=== PATIENT | female | born 1975 | race American Indian/Alaskan Native ===

== ENCOUNTER 2018-02-07 20:14 | Emergency (ER) | payer MEDICAID ==
[2018-02-07 20:26] VITALS: BP 136/84; PULSE 82; RESP 18; TEMP 98.6; O2SAT 99; BMI 26.6
--- NOTE | 2018-02-07 20:36 | ED PDOC ---
Arrival/HPI - General Chief Complaint: ENT Problem Time Seen by Provider: 02/07/18 20:20 Historian: Patient - History of Present Illness Time/Duration: Other (10 days) Symptom Onset: Gradual Symptom Course: Worsening Quality: Other (Itching) Severity Level: Mild Activities at Onset: Rest Associated Symptoms (Text): 02/07/18 20:33 Patient complains of approximately a 10 day history of right much much greater than left periorbital swelling edema and itching. There is no eye involvement. No trauma. No travel or exposure. No visual disturbance. There is no other rash present. No fever or chills. No injury or trauma. Past Medical History - Infectious Disease Hx of Infectious Diseases: None - Reproductive Menopause: No - Cardiac Hx Cardiac Disorders: No - Pulmonary Hx Respiratory Disorders: No - Neurological Hx Neurological Disorder: No - HEENT Hx HEENT Disorder: No - Renal Hx Renal Disorder: No - Endocrine/Metabolic Hx Endocrine Disorders: Yes Hx Diabetes Mellitus Type 2: Yes - Hematological/Oncological Hx Blood Disorders: No - Integumentary Hx Dermatological Disorder: No - Musculoskeletal/Rheumatological Hx Musculoskeletal Disorders: No Hx Falls: No - Gastrointestinal Hx Gastrointestinal Disorders: No - Genitourinary/Gynecological Hx Genitourinary Disorders: No - Psychiatric Hx Psychophysiologic Disorder: No Hx Substance Use: No - Surgical History Other/Comment: pancreatic surgery - Anesthesia Hx Anesthesia: Yes - Suicidal Assessment Feels Threatened In Home Enviroment: No Family/Social History - Physician Review Nursing Documentation Reviewed: Yes Family/Social History: Unknown Family HX Smoking Status: Never Smoked Hx Alcohol Use: No Hx Substance Use: No Hx Substance Use Treatment: No Allergies/Home Meds Allergies/Adverse Reactions: Allergies No Known Allergies Allergy (Verified 12/19/15 21:50) Home Medications: Home Meds Medication Instructions Recorded Confirmed Ondansetron [Zofran] 4 mg PO Q8H PRN 07/22/16 07/22/16 Oxycodone HCl/Acetaminophen 1 tab PO Q6 PRN 07/22/16 07/22/16 [Percocet 5-325 mg Tablet] Review of Systems - Physician Review All systems were reviewed & negative as marked: Yes Physical Exam Vital Signs Temp Pulse Resp BP Pulse Ox 02/07/18 20:23 98.6 F 82 18 136/84 99 Temperature: Afebrile Blood Pressure: Normal Pulse: Regular Respiratory Rate: Normal Appearance: Positive for: Well-Appearing, Non-Toxic, Uncomfortable Pain Distress: None Mental Status: Positive for: Alert and Oriented X 3 Finger Stick Blood Glucose: 345 - Systems Exam Head: Present: Atraumatic, Normocephalic Pupils: Present: PERRL Extroacular Muscles: Present: EOMI Conjunctiva: Present: Normal, Other (Fluorescein staining is negative bilaterally. Right much greater than left periorbital edema with minimal erythema and no tenderness and itching) Ears: Present: NORMAL TM, Normal Canal. No: Erythema Medical Decision Making ED Course and Treatment: 02/07/18 20:36 This appears to be an allergic reaction, does not appear to be orbital or periorbital cellulitis. There is no warmth. No fever. Patient does not appear ill. Discussed with the patient that she will need to take Benadryl over-the- counter for the itching. She will be given a prescription for prednisone. She is aware that she may need to increase her insulin dosage while on the prednisone. She does use a sliding scale on a daily basis. Disposition/Present on Arrival - Present on Arrival Any Indicators Present on Arrival: No History of DVT/PE: No History of Uncontrolled Diabetes: Yes Urinary Catheter: No History of Decub. Ulcer: No History Surgical Site Infection Following: None - Disposition Have Diagnosis and Disposition been Completed?: Yes Diagnosis: Allergic reaction Disposition: HOME/ ROUTINE Disposition Time: 20:46 Patient Plan: Discharge Condition: GOOD Discharge Instructions (ExitCare): Skin Rash, Allergy Skin Testing Additional Instructions: Benadryl [id number] as directed on bottle as needed. Must use her sliding scale for insulin dosage. Follow-up with PMD. Follow-up in the ER as needed. Prescriptions: Prednisone [Deltasone] 20 mg PO DAILY #5 tablet Forms: [employer] (Kazakh)
== END 2018-02-07 21:00 | disposition home or self-care (01) ==
LOC: ED 20:14
DX: T78.40XA Allergy, unspecified, initial encounter (principal); X58.XXXA Exposure to other specified factors, initial encounter; E11.9 Type 2 diabetes mellitus without complications

== ENCOUNTER 2018-09-30 23:52 | Inpatient (IN) | payer MEDICAID ==
[2018-10-01 00:08] VITALS: BMI 25.0
--- NOTE | 2018-10-01 00:11 | ED PDOC ---
Arrival/HPI - General Time Seen by Provider: 09/30/18 23:58 Historian: Patient - History of Present Illness Narrative History of Present Illness (Text): 10/01/18 00:08 43 year old female, whose past medical history includes type 2 diabetes, presents to the emergency department with lower leg edema.Present for a while states the swelling has worsened.Occasional orthopnea. Patient denies any leg pain, chest pain, fever, chills, urinary complaints. Time/Duration: Prior to Arrival Past Medical History - Provider Review Nursing Documentation Reviewed: Yes - Infectious Disease Hx of Infectious Diseases: None - Cardiac Hx Cardiac Disorders: No - Pulmonary Hx Respiratory Disorders: No - Neurological Hx Neurological Disorder: No - HEENT Hx HEENT Disorder: No - Renal Hx Renal Disorder: No - Endocrine/Metabolic Hx Endocrine Disorders: Yes Hx Diabetes Mellitus Type 2: Yes - Hematological/Oncological Hx Blood Disorders: No - Integumentary Hx Dermatological Disorder: No - Musculoskeletal/Rheumatological Hx Musculoskeletal Disorders: No Hx Falls: No - Gastrointestinal Hx Gastrointestinal Disorders: No - Genitourinary/Gynecological Hx Genitourinary Disorders: No - Psychiatric Hx Psychophysiologic Disorder: No Hx Substance Use: No - Surgical History Other/Comment: pancreatic surgery - Anesthesia Hx Anesthesia: Yes - Suicidal Assessment Feels Threatened In Home Enviroment: No Family/Social History - Physician Review Nursing Documentation Reviewed: Yes Family/Social History: No Known Family HX Smoking Status: Never Smoked Hx Alcohol Use: No Hx Substance Use: No Hx Substance Use Treatment: No Allergies/Home Meds Allergies/Adverse Reactions: Allergies No Known Allergies Allergy (Verified 12/19/15 21:50) Home Medications: Home Meds Medication Instructions Recorded Confirmed Ondansetron [Zofran] 4 mg PO Q8H PRN 07/22/16 07/22/16 Oxycodone HCl/Acetaminophen 1 tab PO Q6 PRN 07/22/16 07/22/16 [Percocet 5-325 mg Tablet] Review of Systems - Physician Review All systems were reviewed & negative as marked: Yes - Review of Systems Constitutional: absent: Fevers, Night Sweats Respiratory: absent: SOB Cardiovascular: absent: Chest Pain Genitourinary Female: Normal Musculoskeletal: absent: Other (no leg pain) Physical Exam Vital Signs Reviewed: Yes Vital Signs Temp Pulse Resp BP Pulse Ox 10/01/18 00:04 97.6 F 93 H 18 184/95 H 100 Temperature: Afebrile Blood Pressure: Hypertensive Pulse: Regular Respiratory Rate: Normal Appearance: Positive for: Well-Appearing, Non-Toxic, Comfortable Pain Distress: None Mental Status: Positive for: Alert and Oriented X 3 - Systems Exam Head: Present: Atraumatic, Normocephalic Pupils: Present: PERRL Extroacular Muscles: Present: EOMI Conjunctiva: Present: Normal Mouth: Present: Moist Mucous Membranes Neck: Present: Normal Range of Motion Respiratory/Chest: Present: Clear to Auscultation, Good Air Exchange. No: Respiratory Distress, Accessory Muscle Use Cardiovascular: Present: Regular Rate and Rhythm, Normal S1, S2. No: Murmurs Abdomen: No: Tenderness, Distention, Peritoneal Signs Back: Present: Normal Inspection Upper Extremity: Present: Normal Inspection. No: Cyanosis, Edema Lower Extremity: No: Edema (1+ pitting edema), CALF TENDERNESS, Hazel's Sign Neurological: Present: GCS=15, CN II-XII Intact, Speech Normal, Motor Func Grossly Intact, Normal Sensory Function Skin: Present: Warm, Dry, Normal Color. No: Rashes Psychiatric: Present: Alert, Oriented x 3, Normal Insight, Normal Concentration Medical Decision Making ED Course and Treatment: 10/01/18 00:14 Impression: 43 year old female presents with chronic lower leg edema Plan: -- Chest X-ray -- US bilateral legs -- EKG -- Labs -- Urinalysis -- Reassess and disposition Prior Visits: Notes and results from previous visits were reviewed. Progress Notes: 10/01/18 01:54 Chest X-ray reviewed, shows: Increased pulmonary vascular markings. 10/01/18 01:[address] Lafleur who agrees to accept patient under hospitalist service to telemetry observation. - RAD Interpretation Radiology Orders: 10/01/18 00:04 CHEST PORTABLE [RAD] Stat DUPLEX LOWER EXTRM VEIN BILAT [US] Stat - EKG Interpretation EKG Interpretation (Text): 10/01/18 00:36 Normal sinus rhythm @ 82 bpm Normal EKG - Scribe Statement The provider has reviewed the documentation as recorded by the Lorenzaibtrent Lassiter Provider Scribe Attestation: All medical record entries made by the Scribe were at my direction and personally dictated by me. I have reviewed the chart and agree that the record accurately reflects my personal performance of the history, physical exam, medical decision making, and the department course for this patient. I have also personally directed, reviewed, and agree with the discharge instructions and disposition. Disposition/Present on Arrival - Present on Arrival Any Indicators Present on Arrival: No History of DVT/PE: No History of Uncontrolled Diabetes: Yes Urinary Catheter: No History of Decub. Ulcer: No History Surgical Site Infection Following: None - Disposition Have Diagnosis and Disposition been Completed?: Yes Diagnosis: Leg edema, CHF (congestive heart failure), UTI (urinary tract infection) Disposition: HOSPITALIZED Disposition Time: 01:50 Patient Plan: Observation Patient Problems: Current Active Problems Problem Status Onset CHF (congestive heart failure) Acute Leg edema Acute UTI (urinary tract infection) Acute Condition: STABLE
[2018-10-01 00:37] LABS: HEMOGLOBIN 8.9 g/dL (12.0-16.0); MEAN CELL VOLUME 85.2 fl (80.0-105.0); MEAN CORPUSCULAR HEMOGLOBIN 26.8 pg (25.0-35.0); MEAN CORPUSCULAR HGB CONC 31.4 g/dl (31.0-37.0); MEAN PLATELET VOLUME 10.1 fl (7.0-11.0); RBC 3.32 10^6/uL (3.5-6.1); RED CELL DISTRIBUTION WIDTH 16.6 % (11.5-14.5); WHITE BLOOD COUNT 9.9 10^3/uL (4.5-11.0)
[2018-10-01 00:38] LABS: URINE BILIRUBIN NEGATIVE (NEGATIVE); URINE BLOOD SMALL (NEGATIVE); URINE GLUCOSE (UA) >=1000 mg/dL (NEGATIVE); URINE LEUKOCYTE ESTERASE TRACE Leu/uL (NEGATIVE); URINE PROTEIN 100 mg/dL (<30 mg/dL); URINE UROBILINOGEN 0.2 E.U./dL (<1 E.U./dL)
[2018-10-01 00:45] LABS: URINE APPEARANCE SL CLOUDY (CLEAR); URINE COLOR YELLOW (YELLOW)
[2018-10-01 00:50] LABS: ALBUMIN 3.4 g/dL (3.0-4.8); ALT/SGPT 27 U/L (7-56); AST/SGOT 40 U/L (14-36); BLOOD UREA NITROGEN 25 mg/dL (7-21); CALCIUM 8.4 mg/dL (8.4-10.5); GFR NON-AFRICAN AMERICAN > 60
[2018-10-01 00:56] LABS: URINE BACTERIA MANY (NEG); URINE RBC 0 - 2 /hpf (0-2)
[2018-10-01 00:57] LABS: B-TYPE NATRIURETIC PEPTIDE 700 pg/mL (0-450)
[2018-10-01 01:33] LABS: TROPONIN I < 0.01 ng/mL
[2018-10-01 01:45] LABS: CK-MB 2.6 ng/mL (0.0-3.6)
--- NOTE | 2018-10-01 03:56 | CP.PCM.HP ---
<Dain Emerson - Last Filed: 10/01/18 04:18> History of Present Illness - History of Present Illness History of Present Illness: Dain Emerson PGY1 History and Physical for Dr Lafleur Pt is a 43 yo female with a PMH of DM, hypotension, UTI, and pancreatectomy who presents to the ED complaining of BL LE edema which started about a week ago. Pt states her right leg has also been hurting during this time but she denies any traumatic event. Pt states she has had trouble laying flat to sleep and will frequently wake up gasping for air. She states she has only been sleeping 1hr/night for the past 10 days. Pt states she has experienced dry mouth during this time, she frequently drinks water but cannot seem to quench her thirst. Pt states she feels cold all the time and is wrapped in a blanket during the history and physical. Pt states she has had a cough for the past 6 months. Pt states she has lost 15 lbs in the last 6 months. Pt states she has been experiencing urinary symptoms such as malodor, dysuria, and bubbles in her urine. A 12 point ROS was obtained and added to the HPI where appropriate. PMH: DM, hypotension, UTI, and "kidney problems" PSH: pancreatectomy 2016, cataract surgery 2008 FH: Mother 60 DM. Father 65 DM SH: Denies tobacco, alcohol, illicit drugs Home Meds: victosa, humalog, Lantus, metformin PMD: Dr Ornelas Present on Admission - Present on Admission Any Indicators Present on Admission: No Review of Systems - Review of Systems Review of Systems: a 12 point ROS was obtained and added to the HPI Past Patient History - Infectious Disease Hx of Infectious Diseases: None - Past Social History Smoking Status: Never Smoked - CARDIAC Hx Cardiac Disorders: No - PULMONARY Hx Respiratory Disorders: No - NEUROLOGICAL Hx Neurological Disorder: No - HEENT Hx HEENT Problems: No - RENAL Hx Chronic Kidney Disease: No - ENDOCRINE/METABOLIC Hx Endocrine Disorders: Yes Hx Diabetes Mellitus Type 2: Yes - HEMATOLOGICAL/ONCOLOGICAL Hx Blood Disorders: No - INTEGUMENTARY Hx Dermatological Problems: No - MUSCULOSKELETAL/RHEUMATOLOGICAL Hx Musculoskeletal Disorders: No Hx Falls: No - GASTROINTESTINAL Hx Gastrointestinal Disorders: No - GENITOURINARY/GYNECOLOGICAL Hx Genitourinary Disorders: No - PSYCHIATRIC Hx Psychophysiologic Disorder: No Hx Substance Use: No - SURGICAL HISTORY Other/Comment: pancreatic surgery - ANESTHESIA Hx Anesthesia: Yes Meds Allergies/Adverse Reactions: Allergies Allergy/AdvReac Type Severity Reaction Status Date / Time No Known Allergies Allergy Verified 12/19/15 21:50 Physical Exam - Constitutional Appears: Non-toxic, No Acute Distress - Head Exam Head Exam: ATRAUMATIC, NORMAL INSPECTION, NORMOCEPHALIC - Eye Exam Eye Exam: EOMI. absent: Scleral icterus - ENT Exam ENT Exam: Mucous Membranes Moist - Neck Exam Neck exam: Negative for: Full Rom - Respiratory Exam Respiratory Exam: Clear to Auscultation Bilateral, NORMAL BREATHING PATTERN. absent: Accessory Muscle Use, Wheezes, Respiratory Distress - Cardiovascular Exam Cardiovascular Exam: RRR, +S1, +S2. absent: Diastolic murmur, Systolic Murmur - GI/Abdominal Exam GI & Abdominal Exam: Normal Bowel Sounds, Soft - Extremities Exam Extremities exam: Positive for: pedal edema, pedal pulses present. Negative for: full ROM Additional comments: pt reports pain with flexion of her right hip - Neurological Exam Neurological exam: Alert, CN II-XII Intact, Oriented x3 - Psychiatric Exam Psychiatric exam: Normal Affect, Normal Mood - Skin Skin Exam: Dry, Intact, Warm Results - Vital Signs Recent Vital Signs: Last Vital Signs Temp 97.8 F 10/01/18 03:01 Pulse 82 10/01/18 03:01 Resp 17 10/01/18 03:01 BP 157/94 H 10/01/18 03:01 Pulse Ox 100 10/01/18 03:01 - Labs Result Diagrams: 10/01/18 00:22 10/01/18 00:22 Labs: Laboratory Results - last 24 hr 10/01/18 10/01/18 10/01/18 00:22 00:22 00:22 WBC 9.9 RBC 3.32 L Hgb 8.9 L Hct 28.3 L MCV 85.2 MCH 26.8 MCHC 31.4 RDW 16.6 H Plt Count 371 MPV 10.1 Sodium 139 Potassium 4.0 Chloride 109 H Carbon Dioxide 27 Anion Gap 7 L BUN 25 H Creatinine 0.8 Est GFR ( Amer) > 60 Est GFR (Non-Af Amer) > 60 Random Glucose 175 H Calcium 8.4 Total Bilirubin 0.2 AST 40 H ALT 27 Alkaline Phosphatase 51 Lactate Dehydrogenase Total Creatine Kinase CK-MB (CK-2) CK-MB (CK-2) % Troponin I NT-Pro-B Natriuret Pep 700 H Total Protein 6.6 Albumin 3.4 Globulin 3.2 Albumin/Globulin Ratio 1.0 L Urine Color Yellow Urine Appearance Sl cloudy Urine pH 6.0 Ur Specific [place] 1.025 Urine Protein 100 H Urine Glucose (UA) >=1000 Urine Ketones Negative Urine Blood Small H Urine Nitrate Positive H Urine Bilirubin Negative Urine Urobilinogen 0.2 Ur Leukocyte Esterase Trace H Urine RBC 0 - 2 Urine WBC 5 - 10 Ur Epithelial Cells 1 - 3 Urine Bacteria Many 10/01/18 01:05 WBC RBC Hgb Hct MCV MCH MCHC RDW Plt Count MPV Sodium Potassium Chloride Carbon Dioxide Anion Gap BUN Creatinine Est GFR ( Amer) Est GFR (Non-Af Amer) Random Glucose Calcium Total Bilirubin AST ALT Alkaline Phosphatase Lactate Dehydrogenase 744 H Total Creatine Kinase 749 H CK-MB (CK-2) 2.6 CK-MB (CK-2) % Cancelled Troponin I < 0.01 NT-Pro-B Natriuret Pep Total Protein Albumin Globulin Albumin/Globulin Ratio Urine Color Urine Appearance Urine pH Ur Specific [place] Urine Protein Urine Glucose (UA) Urine Ketones Urine Blood Urine Nitrate Urine Bilirubin Urine Urobilinogen Ur Leukocyte Esterase Urine RBC Urine WBC Ur Epithelial Cells Urine Bacteria Assessment & Plan - Assessment and Plan (Free Text) Assessment: Pt is a 43 yo female with a PMH of DM, hypotension, UTI, and pancreatectomy who presents to the ED complaining of BL LE edema which started about a week ago. Plan: SOB, Pedal Edema, PND - rule out CHF - follow up ECHO - given IV lasix in ED - will start PO lasix 40 daily tomorrow Leg Pain - motrin Anemia - FOBT - iron panel - B12, Folate HTN Urgency - start lisinopril 10mg daily - TSH, T3, T4 follow up UTI - urine cultures - levaquin DM - lisinopril - ISS high Hx of HLD - lipid panel in AM Ppx - SCD - protonix Pt seen, examined, assessment and plan discussed with Dr Miquel Emerson PGY1 Internal Medicine Resident - Date & Time Date: 10/01/18 Time: 04:17 <Irvin Lafleur - Last Filed: 10/01/18 07:18> Results - Vital Signs Recent Vital Signs: Last Vital Signs Temp 97.8 F 10/01/18 03:01 Pulse 79 10/01/18 06:51 Resp 18 10/01/18 06:51 BP 158/93 H 10/01/18 06:51 Pulse Ox 100 10/01/18 06:51 - Labs Result Diagrams: 10/01/18 00:22 10/01/18 00:22 Labs: Laboratory Results - last 24 hr 10/01/18 10/01/18 10/01/18 00:22 00:22 00:22 WBC 9.9 RBC 3.32 L Hgb 8.9 L Hct 28.3 L MCV 85.2 MCH 26.8 MCHC 31.4 RDW 16.6 H Plt Count 371 MPV 10.1 Sodium 139 Potassium 4.0 Chloride 109 H Carbon Dioxide 27 Anion Gap 7 L BUN 25 H Creatinine 0.8 Est GFR ( Amer) > 60 Est GFR (Non-Af Amer) > 60 Random Glucose 175 H Calcium 8.4 Total Bilirubin 0.2 AST 40 H ALT 27 Alkaline Phosphatase 51 Lactate Dehydrogenase Total Creatine Kinase CK-MB (CK-2) CK-MB (CK-2) % Troponin I NT-Pro-B Natriuret Pep 700 H Total Protein 6.6 Albumin 3.4 Globulin 3.2 Albumin/Globulin Ratio 1.0 L Urine Color Yellow Urine Appearance Sl cloudy Urine pH 6.0 Ur Specific [place] 1.025 Urine Protein 100 H Urine Glucose (UA) >=1000 Urine Ketones Negative Urine Blood Small H Urine Nitrate Positive H Urine Bilirubin Negative Urine Urobilinogen 0.2 Ur Leukocyte Esterase Trace H Urine RBC 0 - 2 Urine WBC 5 - 10 Ur Epithelial Cells 1 - 3 Urine Bacteria Many 10/01/18 01:05 WBC RBC Hgb Hct MCV MCH MCHC RDW Plt Count MPV Sodium Potassium Chloride Carbon Dioxide Anion Gap BUN Creatinine Est GFR ( Amer) Est GFR (Non-Af Amer) Random Glucose Calcium Total Bilirubin AST ALT Alkaline Phosphatase Lactate Dehydrogenase 744 H Total Creatine Kinase 749 H CK-MB (CK-2) 2.6 CK-MB (CK-2) % Cancelled Troponin I < 0.01 NT-Pro-B Natriuret Pep Total Protein Albumin Globulin Albumin/Globulin Ratio Urine Color Urine Appearance Urine pH Ur Specific [place] Urine Protein Urine Glucose (UA) Urine Ketones Urine Blood Urine Nitrate Urine Bilirubin Urine Urobilinogen Ur Leukocyte Esterase Urine RBC Urine WBC Ur Epithelial Cells Urine Bacteria Attending/Attestation - Attestation I have personally seen and examined this patient.: Yes I have fully participated in the care of the patient.: Yes I have reviewed all pertinent clinical information: Yes Notes (Text): 43 y/o F with PMH of DM, hypotension, UTI, and pancreatectomy presented with symptoms of worsening orthopnea and B/L LE swelling that has been ongoing for th e past 1wk. Denies any chest pain even upon exertion. No recent leg trauma, or long distance travel or prolonged immobility. P/E + bibasilar crackles, + B/L non-pitting LE edema. CXR: pulmonary congestion, as read by me BNP in 700's ? CHF - get 2D echo - start pt on lasix 40 daily - monitor I/Os HTN - start pt on Lisinopril DM - RISS UTI - send Ur cx - start pt on levaquin Anemia - elevated LDH - send Iron panel, Folate and B12 - send FOBT - Monitor H/H - Send Thyroid panel 10/01/18 07:09
[2018-10-01] MEDS: Pantoprazole 40 mg EC Tab PO SCH (06:50)
[2018-10-01 07:09] LABS: IRON 43 ug/dL (45-180)
[2018-10-01 07:10] LABS: ALBUMIN 3.1 g/dL (3.0-4.8); ALT/SGPT 27 U/L (7-56); AST/SGOT 37 U/L (14-36); BLOOD UREA NITROGEN 22 mg/dL (7-21); CALCIUM 8.6 mg/dL (8.4-10.5); GFR NON-AFRICAN AMERICAN > 60; HDL CHOLESTEROL 88 mg/dL (29-60)
[2018-10-01 07:19] LABS: % IRON SATURATION 13 % (20-55); TOTAL IRON BINDING CAPACITY 325 ug/dL (265-497)
[2018-10-01 07:20] LABS: LDL CHOLESTEROL 95 mg/dL (0-129)
[2018-10-01 07:29] LABS: T4 6.1 ug/dL (5.5-11.0)
[2018-10-01 07:36] LABS: BASO # 0.04 K/mm3 (0.0-2.0); BASO % 0.4 % (0.0-3.0); EOS # 0.2 (0.0-0.7); EOS % 2.1 % (1.5-5.0); GRAN # 7.09 (1.4-6.5); GRAN % 65.1 % (50.0-68.0); LYMPH # 2.3 (1.2-3.4); LYMPH % 21.1 % (22.0-35.0); MEAN CELL VOLUME 85.3 fl (80.0-105.0); MEAN CORPUSCULAR HEMOGLOBIN 26.5 pg (25.0-35.0); MEAN CORPUSCULAR HGB CONC 31.1 g/dl (31.0-37.0); MEAN PLATELET VOLUME 10.5 fl (7.0-11.0); MONO # 1.2 (0.1-0.6); MONO % 11.3 % (1.0-6.0); RBC 3.39 10^6/uL (3.5-6.1); RED CELL DISTRIBUTION WIDTH 16.6 % (11.5-14.5); WHITE BLOOD COUNT 10.9 10^3/uL (4.5-11.0)
[2018-10-01] MEDS: Insulin Reg-HIGH-Coverage SC SCH ×4 (07:40→22:32)
[2018-10-01 07:43] LABS: T3 0.93 ng/mL (0.97-1.69)
--- NOTE | 2018-10-01 09:46 | CARD ---
APPROVED REPORT Date of service: 10/01/2018 EKG Measurement Heart [id number] <Conclusion> Normal sinus rhythm Normal ECG
[2018-10-01] MEDS ORDERED: levoFLOXacin 500 MG TAB PO SCH (10:00)
[2018-10-01] MEDS ORDERED: Dextrose 50% SYRINGE Inj (50 ml) ONE ×2 (10:01→12:48)
--- NOTE | 2018-10-01 12:05 | RAD ---
Date of service: 10/01/2018 HISTORY: Leg edema. COMPARISON: 07/21/2016. FINDINGS: LUNGS: No discrete infiltrates. Pulmonary vascular congestion a progressive finding. PLEURA: No significant pleural effusion identified, no pneumothorax apparent. CARDIOVASCULAR: No atherosclerotic calcification present OSSEOUS STRUCTURES: No significant abnormalities. VISUALIZED UPPER ABDOMEN: Normal. OTHER FINDINGS: None. IMPRESSION: Pulmonary vascular congestion represents a new finding compared to the prior study 07/21/2016.
--- NOTE | 2018-10-01 12:49 | US ---
HISTORY: Leg pain and swelling. Evaluate for DVT PHYSICIAN(S): Osiel Donnelly MD. TECHNIQUE: Duplex sonography and color-flow Doppler with graded compression were used to evaluate the deep venous systems of both lower extremities. FINDINGS: The visualized deep venous systems of both lower extremities are sonographically normal and compressible. Normal wave forms and augmentation are seen. There is no sonographic evidence for deep venous thrombosis in the visualized segments of both lower extremities. IMPRESSION: No sonographic evidence for deep venous thrombosis in the visualized segments of both lower extremities.
[2018-10-01 13:15] LABS: FERRITIN 6.4 ng/mL
[2018-10-01] MEDS ORDERED: Dextrose 50% SYRINGE Inj (50 ml) IV PRN (13:33)
[2018-10-01 13:45] LABS: FOLATE > 20.0 ng/mL
--- NOTE | 2018-10-01 23:34 | CON ---
DATE OF CONSULTATION: 10/01/2018 REASON FOR CONSULTATION: Congestive heart failure. 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 The patient presents because of lower extremity edema as well as shortness of breath. The patient denies any fever or chills. The patient is unaware of any prior cardiac history in the past. MEDICATIONS: Lasix 40 mg p.o. once a day, ibuprofen 600 mg every 8 hours p.r.n., Protonix 40 mg p.o. once a day, Rocephin 1 g intravenously daily, and Zestril 10 mg once a day. REVIEW OF SYSTEMS: No fever or chills. No dizziness or syncope. The patient was reported to be hypoglycemic in the emergency room. PHYSICAL EXAMINATION GENERAL: The patient is a middle-aged female who does not appear to be in any distress. VITAL SIGNS: Blood pressure 143/62, heart rate 81, temperature 97.8, respirations 19. HEENT: Normocephalic. CHEST: Clear. HEART: S1 and S2 regular. EXTREMITIES: 1+ pitting edema. LABORATORY DATA: SMA-7: Sodium 139, potassium of 4, chloride 107, CO2 of 29, glucose 188, BUN 22, creatinine 0.8. ProBNP 700. TSH level at 0.44 and T3 at 0.93; both are below normal. Hemoglobin and hematocrit 9 and 28.9. White count and platelet count are within normal limits. Venous Doppler of the lower extremities: No sonographic evidence of DVT. Chest x-ray revealed normal cardiac silhouette and mild CHF, right hilar infiltrate. EKG revealed normal sinus rhythm at rate of 82. ASSESSMENT: 1. Lower extremity edema; deep venous thrombosis was excluded based on ultrasound. 2. Mild congestive heart failure. 3. Rule out underlying pneumonia. RECOMMENDATIONS: Continue current Lasix 40 mg once a day and Zestril 10 mg once a day, IV Rocephin at 1 g daily. Obtain an echocardiogram. Wayne Burks MD [facility] # [phone]
[2018-10-02] MEDS: Pantoprazole 40 mg EC Tab PO SCH (05:07)
[2018-10-02 06:02] VITALS: O2SAT 98
[2018-10-02 07:59] LABS: BASO # 0.05 K/mm3 (0.0-2.0); BASO % 0.5 % (0.0-3.0); EOS # 0.2 (0.0-0.7); EOS % 1.5 % (1.5-5.0); GRAN # 8.02 (1.4-6.5); GRAN % 72.9 % (50.0-68.0); HEMOGLOBIN 8.9 g/dL (12.0-16.0); LYMPH # 1.8 (1.2-3.4); LYMPH % 16.5 % (22.0-35.0); MEAN CELL VOLUME 84.4 fl (80.0-105.0); MEAN CORPUSCULAR HEMOGLOBIN 26.6 pg (25.0-35.0); MEAN CORPUSCULAR HGB CONC 31.6 g/dl (31.0-37.0); MEAN PLATELET VOLUME 10.5 fl (7.0-11.0); MONO # 0.9 (0.1-0.6); MONO % 8.6 % (1.0-6.0); RBC 3.34 10^6/uL (3.5-6.1); RED CELL DISTRIBUTION WIDTH 16.2 % (11.5-14.5)
[2018-10-02 08:16] LABS: ALBUMIN 2.8 g/dL (3.0-4.8); ALT/SGPT 29 U/L (7-56); AST/SGOT 36 U/L (14-36); BLOOD UREA NITROGEN 19 mg/dL (7-21); CALCIUM 8.4 mg/dL (8.4-10.5); GFR NON-AFRICAN AMERICAN > 60
[2018-10-02] MEDS: Insulin Reg-HIGH-Coverage SC SCH ×3 (08:16→16:29)
[2018-10-02] MEDS ORDERED: cefTRIAXone 1 gm 1 GM/100 ML BAG IVPB SCH (10:00)
[2018-10-02 12:38] VITALS: BP 135/61; RESP 20; TEMP 98.2
[2018-10-02 16:04] LABS: BLOOD UREA NITROGEN 27 mg/dL (7-21); CALCIUM 8.5 mg/dL (8.4-10.5); GFR NON-AFRICAN AMERICAN 60
[2018-10-02 16:37] VITALS: PULSE 80
--- NOTE | 2018-10-02 18:55 | PN ---
DATE: 10/02/2018 SUBJECTIVE: The patient denies any shortness of breath or dizziness. Leg swelling improved. PHYSICAL EXAMINATION VITAL SIGNS: Blood pressure 135/61, heart rate 78, temperature 98.2, respirations 20. HEENT: Normocephalic. CHEST: Clear. HEART: S1 and S2 regular. EXTREMITIES: Trace leg edema. LABORATORY DATA: Hemoglobin and hematocrit 8.9 and 28.2, white count and platelet counts are within normal limits. Today's SMA-7 is within normal limits except for glucose of 155 and anion gap of 7. Venous Doppler of the lower extremities, no sonographic evidence of DVT. A preliminary echo report with a normal ejection fraction and mild pulmonary hypertension, mild mitral insufficiency, mild pulmonic insufficiency. ASSESSMENT: 1. Improved lower extremity edema, could be related to pulmonary hypertension. 2. Mild mitral insufficiency. 3. History of pancreatic benign tumor removal. RECOMMENDATIONS: The patient can be discharged from the cardiac point of view. Case will be discussed with Dr. Dumas. Wayne Burks MD
--- NOTE | 2018-10-02 20:28 | CP.PCM.DIS ---
<SigifredoRamana - Last Filed: 10/02/18 20:13> Provider - Provider Date of Admission: 10/01/18 01:50 Attending physician: Fredi Gonzalez MD Primary care physician: Jesus Hinton MD Time Spent in preparation of Discharge (in minutes): 35 Hospital Course - Lab Results Lab Results: Micro Results 10/01/18 07:00 Urine,Clean Catch Urine Culture - Preliminary Gram Negative Malcolm Most Recent Lab Values WBC 11.0 10^3/uL (4.5-11.0) 10/02/18 07:00 RBC 3.34 10^6/uL (3.5-6.1) L 10/02/18 07:00 Hgb 8.9 g/dL (12.0-16.0) L 10/02/18 07:00 Hct 28.2 % (36.0-48.0) L 10/02/18 07:00 MCV 84.4 fl (80.0-105.0) 10/02/18 07:00 MCH 26.6 pg (25.0-35.0) 10/02/18 07:00 MCHC 31.6 g/dl (31.0-37.0) 10/02/18 07:00 RDW 16.2 % (11.5-14.5) H 10/02/18 07:00 Plt Count 393 10^3/uL (120.0-450.0) 10/02/18 07:00 MPV 10.5 fl (7.0-11.0) 10/02/18 07:00 Gran % 72.9 % (50.0-68.0) H 10/02/18 07:00 Lymph % (Auto) 16.5 % (22.0-35.0) L 10/02/18 07:00 Boone % (Auto) 8.6 % (1.0-6.0) H 10/02/18 07:00 Eos % (Auto) 1.5 % (1.5-5.0) 10/02/18 07:00 Baso % (Auto) 0.5 % (0.0-3.0) 10/02/18 07:00 Gran # 8.02 (1.4-6.5) H 10/02/18 07:00 Lymph # (Auto) 1.8 (1.2-3.4) 10/02/18 07:00 Boone # (Auto) 0.9 (0.1-0.6) H 10/02/18 07:00 Eos # (Auto) 0.2 (0.0-0.7) 10/02/18 07:00 Baso # (Auto) 0.05 K/mm3 (0.0-2.0) 10/02/18 07:00 Sodium 132 mmol/L (132-148) 10/02/18 15:00 Potassium 5.3 mmol/L (3.6-5.0) H 10/02/18 15:00 Chloride 98 mmol/L (98-107) 10/02/18 15:00 Carbon Dioxide 28 mmol/L (21-33) 10/02/18 15:00 Anion Gap 10 (10-20) 10/02/18 15:00 BUN 27 mg/dL (7-21) H 10/02/18 15:00 Creatinine 1.0 mg/dl (0.7-1.2) 10/02/18 15:00 Est GFR ( Amer) > 60 10/02/18 15:00 Est GFR (Non-Af Amer) 60 10/02/18 15:00 POC Glucose (mg/dL) 167 mg/dL (65-110) H 10/01/18 21:24 Random Glucose 600 mg/dL (70-110) H* D 10/02/18 15:00 Hemoglobin A1c 7.7 % (4.2-6.5) H D 10/01/18 06:30 Calcium 8.5 mg/dL (8.4-10.5) 10/02/18 15:00 Iron 43 ug/dL (45-180) L 10/01/18 06:50 TIBC 325 ug/dL (265-497) 10/01/18 06:50 % Saturation 13 % (20-55) L 10/01/18 06:50 Ferritin 6.4 ng/mL 10/01/18 06:50 Total Bilirubin 0.3 mg/dL (0.2-1.3) 10/02/18 07:00 AST 36 U/L (14-36) 10/02/18 07:00 ALT 29 U/L (7-56) 10/02/18 07:00 Alkaline Phosphatase 47 U/L (38-126) 10/02/18 07:00 Lactate Dehydrogenase 744 U/L (333-699) H 10/01/18 01:05 Total Creatine Kinase 749 U/L (35-230) H 10/01/18 01:05 CK-MB (CK-2) 2.6 ng/mL (0.0-3.6) 10/01/18 01:05 CK-MB (CK-2) % Cancelled 10/01/18 01:05 Troponin I < 0.01 ng/mL 10/01/18 01:05 NT-Pro-B Natriuret Pep 700 pg/mL (0-450) H 10/01/18 00:22 Total Protein 5.7 g/dL (5.8-8.3) L 10/02/18 07:00 Albumin 2.8 g/dL (3.0-4.8) L 10/02/18 07:00 Globulin 2.9 gm/dL 10/02/18 07:00 Albumin/Globulin Ratio 1.0 (1.1-1.8) L 10/02/18 07:00 Triglycerides 82 mg/dL (35-160) 10/01/18 06:50 Cholesterol 196 mg/dL (130-200) 10/01/18 06:50 LDL Cholesterol Direct 95 mg/dL (0-129) 10/01/18 06:50 HDL Cholesterol 88 mg/dL (29-60) H 10/01/18 06:50 Vitamin B12 413 pg/mL (239-931) 10/01/18 06:50 Folate > 20.0 ng/mL 10/01/18 06:50 Thyroxine (T4) 6.1 ug/dL (5.5-11.0) 10/01/18 06:50 Total T3 0.93 ng/mL (0.97-1.69) L 10/01/18 06:50 TSH 3rd Generation 0.44 mIU/mL (0.46-4.68) L 10/01/18 06:50 Urine Color Yellow (YELLOW) 10/01/18 00:22 Urine Appearance Sl cloudy (CLEAR) 10/01/18 00:22 Urine pH 6.0 (4.7-8.0) 10/01/18 00:22 Ur Specific Binger 1.025 (1.005-1.035) 10/01/18 00:22 Urine Protein 100 mg/dL (<30 mg/dL) H 10/01/18:22 Urine Glucose (UA) >=1000 mg/dL (NEGATIVE) 10/01/18: Urine Ketones Negative mg/dL (NEGATIVE) 10/01/18: Urine Blood Small (NEGATIVE) H 10/01/18: Urine Nitrate Positive (NEGATIVE) H 10/01/18: Urine Bilirubin Negative (NEGATIVE) 10/01/18: Urine Urobilinogen 0.2 E.U./dL (<1 E.U./dL) 10/01/18: Ur Leukocyte Esterase Trace Christine/uL (NEGATIVE) H 10/01/18: Urine RBC 0 - 2 /hpf (0-2) 10/01/18: Urine WBC 5 - 10 /hpf (0-6) 10/01/18: Ur Epithelial Cells 1 - 3 /hpf (0-5) 10/01/18: Urine Bacteria Many (NEG) 10/01/18: - Hospital Course Hospital Course: Ramana Mei, PGY1 Discharge Summary for Dr. Gonzalez Patient is a 43 yo female with a PMH of DM, HTN, UTI, and pancreatectomy who presented to the ED complaining of B/L LE edema which started about a week ago. She states her right leg has also been hurting during this time but she denied any traumatic event. Patient states she had trouble laying flat to sleep and frequently woke up at night gasping for air. She states she has had a cough for the past 6 months as well. Patient was admitted for lower extremity swelling possibly 2/2 CHF. Medical team was consulted. Cardio was consulted. Patient was started on Lasix, given IVP in the ED and switched to PO on the floors. She was also resumed on her home medications. Patient also had a UA +UTI. She was started on antibiotics. Patient's vitals were stable and labs were within normal limits. Patient had a hypoglycemic event in which her blood glucose dropped to as low as 20 during her hospital course. Her sugars returned to normal. Patient admitted to taking home doses of her own insulin injection during hospital course, which was removed from patients room by nursing staff. Patient's blood glucose was noted to be >500. Patient and family was anxious to go home. Patient was examined after this incident and found to be asymptomatic and in no acute distress. Patient signed out AMA. She was explained the risks of signing out AMA (DKA, HHS, coma, permanent disability, , etc.) and was told to return to the nearest ED if her symptoms worsen. Discharge Plan - Discharge Medications Prescriptions: Furosemide [Lasix] 20 mg PO DAILY #7 tablet - Follow Up Plan Condition: GUARDED Disposition: AGAINST MEDICAL ADVICE Referrals: Jesus Hinton MD [Primary Care Provider] - Follow up with primary <Fredi Gonzalez - Last Filed: 10/03/18 08:20> Provider - Provider Date of Admission: 10/02/18 16:17 Attending physician: Fredi Gonzalez MD Primary care physician: Jesus Hinton MD Hospital Course - Lab Results Lab Results: Micro Results 10/01/18 07:00 Urine,Clean Catch Urine Culture - Preliminary Gram Negative Malcolm Most Recent Lab Values WBC 11.0 10^3/uL (4.5-11.0) 10/02/18 07:00 RBC 3.34 10^6/uL (3.5-6.1) L 10/02/18 07:00 Hgb 8.9 g/dL (12.0-16.0) L 10/02/18 07:00 Hct 28.2 % (36.0-48.0) L 10/02/18 07:00 MCV 84.4 fl (80.0-105.0) 10/02/18 07:00 MCH 26.6 pg (25.0-35.0) 10/02/18 07:00 MCHC 31.6 g/dl (31.0-37.0) 10/02/18 07:00 RDW 16.2 % (11.5-14.5) H 10/02/18 07:00 Plt Count 393 10^3/uL (120.0-450.0) 10/02/18 07:00 MPV 10.5 fl (7.0-11.0) 10/02/18 07:00 Gran % 72.9 % (50.0-68.0) H 10/02/18 07:00 Lymph % (Auto) 16.5 % (22.0-35.0) L 10/02/18 07:00 Boone % (Auto) 8.6 % (1.0-6.0) H 10/02/18 07:00 Eos % (Auto) 1.5 % (1.5-5.0) 10/02/18 07:00 Baso % (Auto) 0.5 % (0.0-3.0) 10/02/18 07:00 Gran # 8.02 (1.4-6.5) H 10/02/18 07:00 Lymph # (Auto) 1.8 (1.2-3.4) 10/02/18 07:00 Boone # (Auto) 0.9 (0.1-0.6) H 10/02/18 07:00 Eos # (Auto) 0.2 (0.0-0.7) 10/02/18 07:00 Baso # (Auto) 0.05 K/mm3 (0.0-2.0) 10/02/18 07:00 Sodium 132 mmol/L (132-148) 10/02/18 15:00 Potassium 5.3 mmol/L (3.6-5.0) H 10/02/18 15:00 Chloride 98 mmol/L (98-107) 10/02/18 15:00 Carbon Dioxide 28 mmol/L (21-33) 10/02/18 15:00 Anion Gap 10 (10-20) 10/02/18 15:00 BUN 27 mg/dL (7-21) H 10/02/18 15:00 Creatinine 1.0 mg/dl (0.7-1.2) 10/02/18 15:00 Est GFR ( Amer) > 60 10/02/18 15:00 Est GFR (Non-Af Amer) 60 10/02/18 15:00 POC Glucose (mg/dL) 167 mg/dL (65-110) H 10/01/18 21:24 Random Glucose 600 mg/dL (70-110) H* D 10/02/18 15:00 Hemoglobin A1c 7.7 % (4.2-6.5) H D 10/01/18 06:30 Calcium 8.5 mg/dL (8.4-10.5) 10/02/18 15:00 Iron 43 ug/dL (45-180) L 10/01/18 06:50 TIBC 325 ug/dL (265-497) 10/01/18 06:50 % Saturation 13 % (20-55) L 10/01/18 06:50 Ferritin 6.4 ng/mL 10/01/18 06:50 Total Bilirubin 0.3 mg/dL (0.2-1.3) 10/02/18 07:00 AST 36 U/L (14-36) 10/02/18 07:00 ALT 29 U/L (7-56) 10/02/18 07:00 Alkaline Phosphatase 47 U/L (38-126) 10/02/18 07:00 Lactate Dehydrogenase 744 U/L (333-699) H 10/01/18 01:05 Total Creatine Kinase 749 U/L (35-230) H 10/01/18 01:05 CK-MB (CK-2) 2.6 ng/mL (0.0-3.6) 10/01/18 01:05 CK-MB (CK-2) % Cancelled 10/01/18 01:05 Troponin I < 0.01 ng/mL 10/01/18 01:05 NT-Pro-B Natriuret Pep 700 pg/mL (0-450) H 10/01/18 00:22 Total Protein 5.7 g/dL (5.8-8.3) L 10/02/18 07:00 Albumin 2.8 g/dL (3.0-4.8) L 10/02/18 07:00 Globulin 2.9 gm/dL 10/02/18 07:00 Albumin/Globulin Ratio 1.0 (1.1-1.8) L 10/02/18 07:00 Triglycerides 82 mg/dL (35-160) 10/01/18 06:50 Cholesterol 196 mg/dL (130-200) 10/01/18 06:50 LDL Cholesterol Direct 95 mg/dL (0-129) 10/01/18 06:50 HDL Cholesterol 88 mg/dL (29-60) H 10/01/18 06:50 Vitamin B12 413 pg/mL (239-931) 10/01/18 06:50 Folate > 20.0 ng/mL 10/01/18 06:50 Thyroxine (T4) 6.1 ug/dL (5.5-11.0) 10/01/18 06:50 Total T3 0.93 ng/mL (0.97-1.69) L 10/01/18 06:50 TSH 3rd Generation 0.44 mIU/mL (0.46-4.68) L 10/01/18 06:50 Urine Color Yellow (YELLOW) 10/01/18 00:22 Urine Appearance Sl cloudy (CLEAR) 10/01/18 00:22 Urine pH 6.0 (4.7-8.0) 10/01/18 00:22 Ur Specific Binger 1.025 (1.005-1.035) 10/01/18 00:22 Urine Protein 100 mg/dL (<30 mg/dL) H 10/01/18 00:22 Urine Glucose (UA) >=1000 mg/dL (NEGATIVE) 10/01/18 00:22 Urine Ketones Negative mg/dL (NEGATIVE) 10/01/18 00:22 Urine Blood Small (NEGATIVE) H 10/01/18 00:22 Urine Nitrate Positive (NEGATIVE) H 10/01/18 00:22 Urine Bilirubin Negative (NEGATIVE) 10/01/18 00:22 Urine Urobilinogen 0.2 E.U./dL (<1 E.U./dL) 10/01/18 00:22 Ur Leukocyte Esterase Trace Christine/uL (NEGATIVE) H 10/01/18 00:22 Urine RBC 0 - 2 /hpf (0-2) 10/01/18 00:22 Urine WBC 5 - 10 /hpf (0-6) 10/01/18 00:22 Ur Epithelial Cells 1 - 3 /hpf (0-5) 10/01/18 00:22 Urine Bacteria Many (NEG) 10/01/18 00:22 Discharge Exam - Head Exam Head Exam: ATRAUMATIC, NORMAL INSPECTION - Eye Exam Eye Exam: EOMI - ENT Exam ENT Exam: Normal Exam - Neck Exam Neck exam: Full Rom - Respiratory Exam Respiratory Exam: Clear to PA & Lateral. absent: Rhonchi, Wheezes - Cardiovascular Exam Cardiovascular Exam: REGULAR RHYTHM, +S1, +S2 - GI/Abdominal Exam GI & Abdominal Exam: Normal Bowel Sounds, Soft. absent: Guarding, Organomegaly, Rebound, Tenderness - Extremities Exam Additional comments: LE edema - Neurological Exam Neurological exam: Alert, Oriented x3 - Psychiatric Exam Psychiatric exam: Normal Affect, Normal Mood Discharge Plan - Follow Up Plan Patient education suggested?: Yes Attending/Attestation - Attestation I have personally seen and examined this patient.: Yes I have fully participated in the care of the patient.: Yes I have reviewed all pertinent clinical information, including history, physical exam and plan: Yes Notes (Text): 10/02/18 43 year old female with past medical history of diabetes, hypertension, pancreatic lesion s/p removal and anemia who presented with complaint of bilateral LE edema and dyspnea on exertion. She was admitted for presumed CHF exacerbation and started on iv lasix. Prbnp was elevated and CXR showed moderate congestion. Echocardiogram showed diastolic dysfunction with preserved EF. She was also started on antibiotics for possible UTI. 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 She had uncontrolled diabetes with fluctuating sugars between hypo/hyperglycemia. Patient signed out against medical advice later in the afternoon. She was explained the risks of signing out against medical advice. Advised to follow up closely with pmd within 2-3 days. Monitor fingersticks at home and bring log book to pmd. Educated on signs of hypo/hyperglycemia. Return to ER if symptoms recur/worse. Fredi Gonzalez MD Hospitalist.
--- NOTE | 2018-10-02 21:28 | CARD ---
APPROVED REPORT Date of service: 10/02/2018 EXAM: Two-dimensional and M-mode echocardiogram with Doppler and color Doppler. INDICATION LE EDEMA, PND 2D DIMENSIONS IVSd1.2 (0.7-1.1cm)LVDd4.4 (3.9-5.9cm) PWd1.3 (0.7-1.1cm)LVDs2.8 (2.5-4.0cm) FS (%) 36.8 %LVEF (%)66.9 (>50%) M-Mode DIMENSIONS Left Atrium (MM)3.80 (2.5-4.0cm)Aortic Root3.50 (2.2-3.7cm) Aortic Cusp Exc.2.20 (1.5-2.0cm) Aortic Valve AoV Peak Ialjmbgu335.0cm/Maximo Peak GR.10mmHg Mitral Valve MV E Kwcfyssx63.8cm/sMV A Tugefukc11.5cm/sE/A ratio1.2 TDI Lateral E' Peak V9.65cm/sMedial E' Peak V8.58cm/sE/Lateral E'9.6 E/Medial E'10.8 Tricuspid Valve TR Peak Ypvejbll152pg/sRAP [id number] Peak Gr.31mmHg [id number] LEFT VENTRICLE The left ventricle is normal size. There is mild concentric left ventricular hypertrophy. The left ventricular function is normal.EF-65% There is normal LV segmental wall motion. Transmitral Doppler flow pattern is Grade III-reversible restrictive diastolic dysfunction. No left ventricle thrombus noted on this study. There is no ventricular septal defect visualized. There is no left ventricular aneurysm. There is no mass noted in the left ventricle. There is no mass noted in the left ventricle. RIGHT VENTRICLE The right ventricle is normal size. There is normal right ventricular wall thickness. The right ventricular systolic function is normal. ATRIA The left atrium is mildly dilated. The right atrium size is normal. The interatrial septum is intact with no evidence for an atrial septal defect. AORTIC VALVE The aortic valve is thickened but opens well. The aortic valve is mildly sclerotic. There is trace aortic regurgitation. There is no aortic valvular stenosis. There is no aortic valvular vegetation. MITRAL VALVE The mitral valve is thickened but opens well. Mitral regurgitation is mild. There is no mitral valve stenosis. There is no evidence of mitral valve prolapse. TRICUSPID VALVE The tricuspid valve leaflets are thickened or calcified, but open well. There is mild tricuspid regurgitation.RVSP-41 mm of Hg, There is no tricuspid valve stenosis. There is no tricuspid valve prolapse or vegetation. PULMONIC VALVE The pulmonic valve is mildly thickened. There is mild pulmonic valvular regurgitation. There is no pulmonic valvular stenosis. GREAT VESSELS The aortic root is normal in size. The ascending aorta is normal in size. The pulmonary artery is normal. The IVC is normal in size and collapses >50% with inspiration. PERICARDIAL EFFUSION There is no pleural effusion. There is no pericardial effusion. <Conclusion> The left ventricle is normal size. There is mild concentric left ventricular hypertrophy. The left ventricular function is normal.EF-65% There is trace aortic regurgitation. Mitral regurgitation is mild. There is mild tricuspid regurgitation.RVSP-41 mm of Hg, There is mild pulmonic valvular regurgitation. The IVC is normal in size and collapses >50% with inspiration. There is no pericardial effusion.
== END 2018-10-02 17:35 | disposition left against medical advice (07) | DRG 194 ==
LOC: ED 23:52 → ERH 10-01 01:50 → 2RSO 10-01 17:54 → OBSVTOIN 10-02 16:17
PROVIDERS: ADMIT Hospitalist; ATTEND Internal Medicine
DX: I11.0 Hypertensive heart disease with heart failure (principal); E10.649 Type 1 diabetes mellitus with hypoglycemia without coma; I50.33 Acute on chronic diastolic (congestive) heart failure; E10.65 Type 1 diabetes mellitus with hyperglycemia; D64.9 Anemia, unspecified; I34.0 Nonrheumatic mitral (valve) insufficiency; N39.0 Urinary tract infection, site not specified; Z90.410 Acquired total absence of pancreas

== ENCOUNTER 2018-10-23 18:49 | Observation (INO) | payer MEDICAID ==
[2018-10-23 18:56] VITALS: BMI 25.6
[2018-10-23 19:52] LABS: BASO # 0.04 K/mm3 (0.0-2.0); BASO % 0.4 % (0.0-3.0); EOS # 0.2 (0.0-0.7); GRAN # 6.27 (1.4-6.5); GRAN % 67.3 % (50.0-68.0); HEMOGLOBIN 8.8 g/dL (12.0-16.0); LYMPH # 2.1 (1.2-3.4); LYMPH % 22.4 % (22.0-35.0); MEAN CELL VOLUME 84.8 fl (80.0-105.0); MEAN CORPUSCULAR HEMOGLOBIN 26.8 pg (25.0-35.0); MEAN CORPUSCULAR HGB CONC 31.7 g/dl (31.0-37.0); MONO # 0.7 (0.1-0.6); MONO % 7.9 % (1.0-6.0); RBC 3.28 10^6/uL (3.5-6.1); RED CELL DISTRIBUTION WIDTH 15.9 % (11.5-14.5); WHITE BLOOD COUNT 9.3 10^3/uL (4.5-11.0)
[2018-10-23 19:56] LABS: INR 0.91; PARTIAL THROMBOPLASTIN TIME 32.5 Seconds (25.1-36.5); PROTHROMBIN TIME 10.4 SECONDS (9.4-12.5)
[2018-10-23 20:03] LABS: B-TYPE NATRIURETIC PEPTIDE 912 pg/mL (0-450); TROPONIN I < 0.01 ng/mL
[2018-10-23 20:49] LABS: ALB/GLOB RATIO 0.9 (1.1-1.8); ALT/SGPT 21 U/L (7-56); AST/SGOT 23 U/L (14-36); BLOOD UREA NITROGEN 28 mg/dL (7-21); CALCIUM 8.9 mg/dL (8.4-10.5); GFR NON-AFRICAN AMERICAN 60
[2018-10-23] MEDS ORDERED: Iohexol 350 MG/100 ML VIAL ONE (20:59)
[2018-10-23 21:17] LABS: FREE T4 1.15 ng/dL (0.78-2.19)
[2018-10-23 21:21] LABS: URINE BILIRUBIN NEGATIVE (NEGATIVE); URINE BLOOD TRACE-INTACT (NEGATIVE); URINE GLUCOSE (UA) >=1000 mg/dL (NEGATIVE); URINE LEUKOCYTE ESTERASE NEGATIVE Leu/uL (NEGATIVE); URINE PROTEIN 100 mg/dL (<30 mg/dL); URINE UROBILINOGEN 0.2 E.U./dL (<1 E.U./dL)
[2018-10-23 21:31] LABS: URINE APPEARANCE CLEAR (CLEAR); URINE COLOR STRAW (YELLOW)
[2018-10-23 21:37] LABS: URINE EPITHELIAL CELLS MANY /hpf (0-5); URINE WBC 15 - 20 /hpf (0-6)
--- NOTE | 2018-10-23 21:49 | ED PDOC ---
Arrival/HPI <FredWilton - Last Filed: 10/23/18 21:57> - General Historian: Patient - History of Present Illness Narrative History of Present Illness (Text): 10/23/18 21:45 43 y/o female with PMH of uncontrolled DM, HTN, Cardiomyopathy (impaired diastolic function with preserved EF), pancreatic mass (s/p resection 2015) presents to the ED c/o chest pain and palpitations x 2 days. Chest pain is intermittent and alternates between sharp and pressure. Palpitations decreased as heart beating "fast and hard". Associated SOB and dry cough worse when laying flat. Pt was seen here 10/01 and admitted for symptoms of CHF, including SOB and bilateral peripheral pedal edema. States she followed up with her PMD Dr. Jesus Hinton, who helped her schedule an appointment with cardiology for 11/02. Pt only take her insulin when she feels like her sugar is high. No insulin taken today. Denies fevers, chills, diaphoresis, dysonea on exertion, N/V, abdominal pain, headache, vision changes, dizziness, weakness, numbness, paresthesias, urinary symptoms, back pain, calf pain, leg swelling, or any other associated symptoms. <Gardenia Belle - Last Filed: 10/23/18 22:35> <Rj Peñaloza - Last Filed: 10/24/18 07:03> - General Chief Complaint: Chest Pain Time Seen by Provider: 10/23/18 19:00 Past Medical History - Infectious Disease Hx of Infectious Diseases: None - Cardiac Hx Cardiac Disorders: Yes Hx Congestive Heart Failure: Yes Hx Hypertension: Yes - Pulmonary Hx Respiratory Disorders: No - Neurological Hx Neurological Disorder: No - HEENT Hx HEENT Disorder: No - Renal Hx Renal Disorder: No - Endocrine/Metabolic Hx Endocrine Disorders: Yes Hx Diabetes Mellitus Type 1: Yes (Pancreatic Tumor removed 2015) - Hematological/Oncological Hx Blood Disorders: No - Integumentary Hx Dermatological Disorder: No - Musculoskeletal/Rheumatological Hx Falls: No - Gastrointestinal Hx Pancreatitis: Yes (Tumor removed 2015) - Genitourinary/Gynecological Hx Genitourinary Disorders: No - Psychiatric Hx Psychophysiologic Disorder: No Hx Substance Use: No - Surgical History Other/Comment: pancreatic surgery - Anesthesia Hx Anesthesia: Yes - Suicidal Assessment Feels Threatened In Home Enviroment: No <Gardenia Belle - Last Filed: 10/23/18 22:35> Family/Social History - Physician Review Nursing Documentation Reviewed: Yes Family/Social History: No Known Family HX Smoking Status: Never Smoked Hx Alcohol Use: No Hx Substance Use: No Hx Substance Use Treatment: No <Gardenia Belle - Last Filed: 10/23/18 22:35> Allergies/Home Meds <Wilton Ibarra - Last Filed: 10/23/18 21:57> <Gardenia Belle - Last Filed: 10/23/18 22:35> <Rj Peñaloza - Last Filed: 10/24/18 07:03> Allergies/Adverse Reactions: Allergies No Known Allergies Allergy (Verified 12/19/15 21:50) Home Medications: Home Meds Medication Instructions Recorded Confirmed Ondansetron [Zofran] 4 mg PO Q8H PRN 07/22/16 07/22/16 Oxycodone HCl/Acetaminophen 1 tab PO Q6 PRN 07/22/16 07/22/16 [Percocet 5-325 mg Tablet] Alogliptin 25 mg PO DAILY 10/01/18 10/01/18 Atorvastatin 20 mg PO HS 10/01/18 10/01/18 Basaglar Kwikpen U-100 50 units SQ HS 10/01/18 10/01/18 Drisdol 50,000 Intl Units Cap 1 cap PO QD7 10/01/18 10/01/18 Home 10/01/18 Jardiance 25 mg PO DAILY 10/01/18 10/01/18 Metformin HCl 1,000 mg PO BID 10/01/18 10/01/18 Novofine 32 10/01/18 Victoza 2-Thomas 6 mg SQ DAILY 10/01/18 10/01/18 Review of Systems - Physician Review All systems were reviewed & negative as marked: Yes - Review of Systems Constitutional: Fatigue. absent: Fevers Eyes: Normal. absent: Vision Changes ENT: Normal. absent: Sore Throat, Sinus Congestion Respiratory: SOB, Cough. absent: Sputum, Wheezing Cardiovascular: Chest Pain, Palpitations, Orthopnea. absent: Edema, Calf Pain, Syncope Gastrointestinal: Normal. absent: Abdominal Pain, Stool Changes, Nausea, Vomiting, Appetite Changes Genitourinary Female: Normal Musculoskeletal: Normal. absent: Arthralgias, Back Pain Skin: Normal. absent: Rash Neurological: Normal. absent: Headache, Dizziness Endocrine: Normal. absent: Diaphoresis Hemo/Lymphatic: Normal Psychiatric: Normal <BarbraGardenia - Last Filed: 10/23/18 22:35> Physical Exam Vital Signs Temp Pulse Resp BP Pulse Ox 10/23/18 19:03 98.0 F 81 16 171/91 H 99 <Wilton Ibarra - Last Filed: 10/23/18 21:57> Vital Signs Reviewed: Yes Vital Signs Temp Pulse Resp BP Pulse Ox 10/23/18 19:03 98.0 F 81 16 171/91 H 99 Temperature: Afebrile Blood Pressure: Hypertensive Pulse: Regular Respiratory Rate: Normal Appearance: Positive for: Well-Appearing, Non-Toxic, Comfortable Pain Distress: None Mental Status: Positive for: Alert and Oriented X 3 - Systems Exam Head: Present: Atraumatic, Normocephalic Pupils: Present: PERRL Extroacular Muscles: Present: EOMI Conjunctiva: Present: Normal Mouth: Present: Moist Mucous Membranes Nose (External): Present: Atraumatic Nose (Internal): Present: Normal Inspection Neck: Present: Normal Range of Motion Respiratory/Chest: Present: Clear to Auscultation, Good Air Exchange. No: Respiratory Distress, Accessory Muscle Use Cardiovascular: Present: Regular Rate and Rhythm, Normal S1, S2, Peripheal Pulses Present. No: Murmurs Abdomen: Present: Normal Bowel Sounds. No: Tenderness, Distention, Peritoneal Signs Back: Present: Normal Inspection. No: CVA Tenderness Upper Extremity: Present: Normal Inspection, Normal ROM, NORMAL PULSES, Neurovascularly Intact, Capillary Refill < 2s. No: Cyanosis, Edema Lower Extremity: Present: Normal Inspection, NORMAL PULSES, Normal ROM, Neurovascularly Intact, Capillary Refill < 2 s. No: Edema, CALF TENDERNESS, Tenderness, Swelling Neurological: Present: GCS=15, CN II-XII Intact, Speech Normal, Motor Func Grossly Intact, Normal Sensory Function Skin: Present: Warm, Dry, Normal Color. No: Rashes Lymphatic: No: Cervical Adenopathy Psychiatric: Present: Alert, Oriented x 3, Normal Insight, Normal Concentration, Normal Affect, Normal Mood <Gardenia Belle - Last Filed: 10/23/18 22:35> Vital Signs Temp Pulse Resp BP Pulse Ox 10/23/18 23:35 19 10/23/18 23:08 81 18 139/81 99 10/23/18 21:05 79 18 168/90 H 99 10/23/18 19:03 98.0 F 81 16 171/91 H 99 <Rj Peñaloza - Last Filed: 10/24/18 07:03> Medical Decision Making - Lab Interpretations Lab Results: 10/23/18 19:30 10/23/18 19:30 Lab Results 10/23/18 20:30: Urine Color Straw, Urine Appearance Clear, Urine pH 6.0, Ur Specific [place] 1.020, Urine Protein 100 H, Urine Glucose (UA) >=1000, Urine Ketones Negative, Urine Blood Trace-intact H, Urine Nitrate Negative, Urine Bilirubin Negative, Urine Urobilinogen 0.2, Ur Leukocyte Esterase Negative, Urine RBC 5 - 10, Urine WBC 15 - 20, Ur Epithelial Cells Many 10/23/18 19:30: Free T4 1.15, TSH 3rd Generation 0.65 10/23/18 19:30: PT 10.4, INR 0.91, APTT 32.5, D-Dimer, Quantitative 461 H 10/23/18 19:30: Sodium 140, Potassium 4.1, Chloride 110 H, Carbon Dioxide 26, Anion Gap 8 L, BUN 28 H, Creatinine 1.0, Est GFR ( Amer) > 60, Est GFR (Non-Af Amer) 60, Random Glucose 233 H, Calcium 8.9, Magnesium 2.2, Total Bilirubin 0.2, AST 23, ALT 21, Alkaline Phosphatase 58, Lactate Dehydrogenase 620, Total Creatine Kinase 104, Troponin I < 0.01, NT-Pro-B Natriuret Pep 912 H, Total Protein 6.1, Albumin 3.0, Globulin 3.2, Albumin/Globulin Ratio 0.9 L 10/23/18 19:30: WBC 9.3, RBC 3.28 L, Hgb 8.8 L, Hct 27.8 L, MCV 84.8, MCH 26.8, MCHC 31.7, RDW 15.9 H, Plt Count 326, MPV 10.0, Gran % 67.3, Lymph % (Auto) 22.4, Ida % (Auto) 7.9 H, Eos % (Auto) 2.0, Baso % (Auto) 0.4, Gran # 6.27, Lymph # (Auto) 2.1, Ida # (Auto) 0.7 H, Eos # (Auto) 0.2, Baso # (Auto) 0.04 - RAD Interpretation Radiology Orders: 10/23/18 19:11 CHEST TWO VIEWS (PA/LAT) [RAD] Stat 10/23/18 19:58 ANGIO CHEST PE PROTOCOL [CT] Stat - Medication Orders Current Medication Orders: Discontinued Medications Aspirin (Aspirin) 325 mg PO STAT STA Stop: 10/23/18 19:19 Last Admin: 10/23/18 20:27 Dose: 325 mg <Wilton Ibarra - Last Filed: 10/23/18 21:57> ED Course and Treatment: 1900 Initial Plan: * CBC, CMP * TSH, T3, T4 * Troponin, Dimer * BNP * EKG * CXR * ASA CBC: hgb 8.8, pt with history of anemia CMP: BUN 28, gap 8, glucose 233 TSH, T3, T4: wnl Troponin: <0.01 BNP: 912, increased from 700 last visit Dimer: 461 will get CTA. risk v. benefit discussed with patient, who verbalizes understanding and consents for test. CXR: no active disease as read by Dr. Ibarra EKG: rate 81; NSR; normal intervals; no STEMI 2155 CTA negative for pulmonary embolism. Retroperitoneal masses/adenopathy, recommend followup CT abd/pelvis 2220 --Spoke with Dr. Birch who accepts patient for admission to hospitalist service for observation with diagnoses of Chest pain r/o ACS, Anemia, Dyspnea, CHF, Hyperglycemia. Patient aware of plan for admission, agrees, and understands necessity for observation. Patient A&Ox3, resting comfortably in stretcher, with stable vitals at this time. - Lab Interpretations Lab Results: 10/23/18 19:30 10/23/18 19:30 Lab Results 10/23/18 20:30: Urine Color Straw, Urine Appearance Clear, Urine pH 6.0, Ur Specific [place] 1.020, Urine Protein 100 H, Urine Glucose (UA) >=1000, Urine Ketones Negative, Urine Blood Trace-intact H, Urine Nitrate Negative, Urine Bilirubin Negative, Urine Urobilinogen 0.2, Ur Leukocyte Esterase Negative, Urine RBC 5 - 10, Urine WBC 15 - 20, Ur Epithelial Cells Many 10/23/18 19:30: Free T4 1.15, TSH 3rd Generation 0.65 10/23/18 19:30: PT 10.4, INR 0.91, APTT 32.5, D-Dimer, Quantitative 461 H 10/23/18 19:30: Sodium 140, Potassium 4.1, Chloride 110 H, Carbon Dioxide 26, Anion Gap 8 L, BUN 28 H, Creatinine 1.0, Est GFR ( Amer) > 60, Est GFR (Non-Af Amer) 60, Random Glucose 233 H, Calcium 8.9, Magnesium 2.2, Total Bilirubin 0.2, AST 23, ALT 21, Alkaline Phosphatase 58, Lactate Dehydrogenase 620, Total Creatine Kinase 104, Troponin I < 0.01, NT-Pro-B Natriuret Pep 912 H, Total Protein 6.1, Albumin 3.0, Globulin 3.2, Albumin/Globulin Ratio 0.9 L 10/23/18 19:30: WBC 9.3, RBC 3.28 L, Hgb 8.8 L, Hct 27.8 L, MCV 84.8, MCH 26.8, MCHC 31.7, RDW 15.9 H, Plt Count 326, MPV 10.0, Gran % 67.3, Lymph % (Auto) 22.4, Ida % (Auto) 7.9 H, Eos % (Auto) 2.0, Baso % (Auto) 0.4, Gran # 6.27, Lymph # (Auto) 2.1, Ida # (Auto) 0.7 H, Eos # (Auto) 0.2, Baso # (Auto) 0.04 I have reviewed the lab results: Yes - RAD Interpretation Narrative RAD Interpretations (Text): 10/23/18 22:16 CXR: No active disease 10/23/18 22:48 CTA Chest with Intravenous Contrast for Pulmonary Embolism FINDINGS: PULMONARY ARTERIES Pulmonary embolism is not identified. No pleural effusions AORTA Thoracic aorta is normal course and caliber LUNGS The lungs appear clear. PLEURAL SPACES No pleural effusion seen. No pneumothorax evident. HEART Normal size heart LYMPH NODES Questionable multiple retroperitoneal masses/adenopathy, see series [address] of the abdomen and pelvis for further evaluation as clinically warranted. BONES No focal osseous abnormality or acute fracture. UPPER ABDOMEN Images of the upper abdomen are unremarkable. MISCELLANEOUS: Suboptimal contrast timing No infiltrates identified IMPRESSION: 1. Suboptimal contrast timing 2. Pulmonary embolism is not identified. No pleural effusions 3. No infiltrates identified 4. Thoracic aorta is normal course and caliber 5. Normal size heart 6. Questionable multiple retroperitoneal masses/adenopathy, see series [address] of the abdomen and pelvis for further evaluation as clinically warranted. 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 Ibarra) - EKG Interpretation EKG Interpretation (Text): 10/23/18 22:17 Rate 81; NSR; normal intervals; no STEMI or other signs of ischemia Interpreted by ED Physician: Yes (Dr. Peñaloza) Type: 12 lead EKG - Medication Orders Current Medication Orders: Discontinued Medications Aspirin (Aspirin) 325 mg PO STAT STA Stop: 10/23/18 19:19 Last Admin: 10/23/18 20:27 Dose: 325 mg <Gardenia Belle - Last Filed: 10/23/18 22:35> - Lab Interpretations Lab Results: 10/23/18 19:30 10/23/18 19:30 Lab Results 10/23/18 20:30: Urine Color Straw, Urine Appearance Clear, Urine pH 6.0, Ur Specific [place] 1.020, Urine Protein 100 H, Urine Glucose (UA) >=1000, Urine Ketones Negative, Urine Blood Trace-intact H, Urine Nitrate Negative, Urine Bilirubin Negative, Urine Urobilinogen 0.2, Ur Leukocyte Esterase Negative, Urine RBC 5 - 10, Urine WBC 15 - 20, Ur Epithelial Cells Many 10/23/18 19:30: Free T4 1.15, TSH 3rd Generation 0.65 10/23/18 19:30: PT 10.4, INR 0.91, APTT 32.5, D-Dimer, Quantitative 461 H 10/23/18 19:30: Sodium 140, Potassium 4.1, Chloride 110 H, Carbon Dioxide 26, Anion Gap 8 L, BUN 28 H, Creatinine 1.0, Est GFR ( Amer) > 60, Est GFR (Non-Af Amer) 60, Random Glucose 233 H, Calcium 8.9, Magnesium 2.2, Total Bilirubin 0.2, AST 23, ALT 21, Alkaline Phosphatase 58, Lactate Dehydrogenase 620, Total Creatine Kinase 104, Troponin I < 0.01, NT-Pro-B Natriuret Pep 912 H, Total Protein 6.1, Albumin 3.0, Globulin 3.2, Albumin/Globulin Ratio 0.9 L 10/23/18 19:30: WBC 9.3, RBC 3.28 L, Hgb 8.8 L, Hct 27.8 L, MCV 84.8, MCH 26.8, MCHC 31.7, RDW 15.9 H, Plt Count 326, MPV 10.0, Gran % 67.3, Lymph % (Auto) 22.4, Ida % (Auto) 7.9 H, Eos % (Auto) 2.0, Baso % (Auto) 0.4, Gran # 6.27, Lymph # (Auto) 2.1, Ida # (Auto) 0.7 H, Eos # (Auto) 0.2, Baso # (Auto) 0.04 - RAD Interpretation Radiology Orders: 10/23/18 19:11 CHEST TWO VIEWS (PA/LAT) [RAD] Stat 10/23/18 19:58 ANGIO CHEST PE PROTOCOL [CT] Stat - Medication Orders Current Medication Orders: Aspirin (Ecotrin) 81 mg PO DAILY DOROTHEA Atorvastatin Calcium (Lipitor) 20 mg PO HS DOROTHEA Dextrose (Dextrose 50% Inj) 50 ml IVP PRN PRN PRN Reason: Low blood sugar Dextrose (Glutose 15) 15 gm PO PRN PRN PRN Reason: Low blood sugar Heparin Sodium (Porcine) (Heparin) 5,000 units SC Q12 DOROTHEA; Protocol Insulin Human Lispro (Humalog Low) 0 units SC AC DOROTHEA; Protocol Metoprolol Tartrate (Lopressor) 25 mg PO BID DOROTHEA Discontinued Medications Aspirin (Aspirin) 325 mg PO STAT STA Stop: 10/23/18 19:19 Last Admin: 10/23/18 20:27 Dose: 325 mg Iron Sucrose 100 mg/ Sodium (Chloride) 105 mls @ 210 mls/hr IVPB ONCE ONE Stop: 10/24/18 06:29 Last Admin: 10/24/18 06:18 Dose: 210 mls/hr eMAR Start Stop Document 10/24/18 06:18 LUCI (Rec: 10/24/18 06:18 LUCI [id number]) Intravenous Solution Start Date 10/24/18 Start Time 06:18 End Date 10/24/18 End time 07:20 Total Infusion Time 62 Pantoprazole Sodium (Protonix Inj) 40 mg IVP DAILY STA Stop: 10/23/18 23:12 Last Admin: 10/24/18 00:26 Dose: 40 mg IVP Administration Document 10/24/18 00:26 LUCI (Rec: 10/24/18 00:27 LUCI [facility] [id number]) Charges for Administration # of IVP Administrations 1 <Rj Peñaloza - Last Filed: 10/24/18 07:03> - PA / HANDY WORKER / Resident Statement SILVIA has reviewed & agrees with the documentation as recorded. SLIVIA has examined the patient and agrees with the treatment plan. <Wilton Ibarra - Last Filed: 10/23/18 21:57> - PA / HANDY WORKER / Resident Statement SILVIA has reviewed & agrees with the documentation as recorded. <Rj Peñaloza - Last Filed: 10/24/18 07:03> Disposition/Present on Arrival <Wilton Ibarra - Last Filed: 10/23/18 21:57> - Present on Arrival Any Indicators Present on Arrival: Yes History of DVT/PE: No History of Uncontrolled Diabetes: Yes Urinary Catheter: No History of Decub. Ulcer: No History Surgical Site Infection Following: None - Disposition Have Diagnosis and Disposition been Completed?: Yes Disposition Time: 22:00 Patient Plan: Admission <Gardenia Belle - Last Filed: 10/23/18 22:35> <Rj Peñaloza - Last Filed: 10/24/18 07:03> - Disposition Diagnosis: CHF (congestive heart failure), Chest pain, Hyperglycemia, Anemia Disposition: HOME/ ROUTINE Patient Problems: Current Active Problems Problem Status Onset Anemia Acute CHF (congestive heart failure) Acute Chest pain Acute Hyperglycemia Acute Condition: STABLE
--- NOTE | 2018-10-23 23:34 | CP.PCM.HP ---
<RobertNathalyd - Last Filed: 10/24/18 04:43> History of Present Illness - History of Present Illness History of Present Illness: Sarah Jones, PGY-1 Medicine H&P Note for Dr. Birch CC: SOB and palpitations Pt is a 43 yo F with pmhx of DM, HTN, HFpEF, pancreatic mass s/p resection in 2016 who presents to the ED with complaints of chest pain and palpitations x2 days. Pt states that 2 days ago at night she was unable to lay down flat due to SOB and palpitations. She states that she typically sleeps on one pillow at night and has had these symptoms only once before when she also noted that she was having some leg swelling. She denies any leg swelling at this time. She states that this SOB self resolved and did not have any PND. Pt states that this episode repeated last night and is even present while here in the ED. Pt denies fevers, chills, headache but admits to weakness. She also denies chest pain, PND, dyspnea on exertion, leg swelling but admits to SOB, orthopnea, cough but states that it is dry. She denies abd pain, n/v, c/d, dsyuria, frequency or hematuria. She has no other complaints at this time and states that her SOB is resolving and is able to sleep. Pmhx: DM, HTN, HFpEF, pancreatic mass s/p resection in 2016 Pshx: Pancreatic mass resection in 16 Meds: Insulin All: NKDA Social: Denies any tobacco use, denies etoh or illicit drug use Fam: Mom: DM, Dad: DM PMD: Jesus Hinton [facility]: [facility] Present on Admission - Present on Admission Any Indicators Present on Admission: No Review of Systems - Review of Systems Review of Systems: 12 point ROS reviewed and negative except noted in HPI above. Past Patient History - Infectious Disease Hx of Infectious Diseases: None - Past Social History Smoking Status: Never Smoked - CARDIAC Hx Cardiac Disorders: Yes Hx Congestive Heart Failure: Yes Hx Hypertension: Yes - PULMONARY Hx Respiratory Disorders: No - NEUROLOGICAL Hx Neurological Disorder: No - HEENT Hx HEENT Problems: No - RENAL Hx Chronic Kidney Disease: No - ENDOCRINE/METABOLIC Hx Endocrine Disorders: Yes Hx Diabetes Mellitus Type 1: Yes (Pancreatic Tumor removed 2015) - HEMATOLOGICAL/ONCOLOGICAL Hx Blood Disorders: No - INTEGUMENTARY Hx Dermatological Problems: No - MUSCULOSKELETAL/RHEUMATOLOGICAL Hx Falls: No - GASTROINTESTINAL Hx Pancreatitis: Yes (Tumor removed 2016) - GENITOURINARY/GYNECOLOGICAL Hx Genitourinary Disorders: No - PSYCHIATRIC Hx Psychophysiologic Disorder: No Hx Substance Use: No - SURGICAL HISTORY Other/Comment: pancreatic surgery - ANESTHESIA Hx Anesthesia: Yes Meds Allergies/Adverse Reactions: Allergies Allergy/AdvReac Type Severity Reaction Status Date / Time No Known Allergies Allergy Verified 12/19/15 21:50 Physical Exam - Constitutional Appears: Well, Non-toxic, No Acute Distress - Head Exam Head Exam: ATRAUMATIC, NORMAL INSPECTION, NORMOCEPHALIC - Eye Exam Eye Exam: EOMI, Normal appearance, PERRL - ENT Exam ENT Exam: Mucous Membranes Dry - Respiratory Exam Respiratory Exam: Clear to Auscultation Bilateral, NORMAL BREATHING PATTERN. absent: Accessory Muscle Use, Decreased Breath Sounds, Rales, Rhonchi, Wheezes, Respiratory Distress, Stridor - Cardiovascular Exam Cardiovascular Exam: RRR, +S1, +S2. absent: Gallop, Rubs - GI/Abdominal Exam GI & Abdominal Exam: Normal Bowel Sounds, Soft. absent: Firm, Mass, Tenderness - Extremities Exam Extremities exam: Positive for: normal capillary refill, normal inspection, p edal pulses present. Negative for: calf tenderness, pedal edema - Back Exam Back exam: NORMAL INSPECTION. absent: CVA tenderness (L), CVA tenderness (R) - Neurological Exam Neurological exam: Alert, Oriented x3 - Psychiatric Exam Psychiatric exam: Normal Affect, Normal Mood - Skin Skin Exam: Dry, Intact, Normal Color, Warm Results - Vital Signs Recent Vital Signs: Last Vital Signs Temp 98.0 F 10/23/18 19:03 Pulse 81 10/23/18 23:08 Resp 18 10/23/18 23:08 BP 139/81 10/23/18 23:08 Pulse Ox 99 10/23/18 23:08 - Labs Result Diagrams: 10/23/18 19:30 10/23/18 19:30 Labs: Laboratory Results - last 24 hr 10/23/18 10/23/18 10/23/18 19:30 19:30 19:30 WBC 9.3 RBC 3.28 L Hgb 8.8 L Hct 27.8 L MCV 84.8 MCH 26.8 MCHC 31.7 RDW 15.9 H Plt Count 326 MPV 10.0 Gran % 67.3 Lymph % (Auto) 22.4 [place] % (Auto) 7.9 H Eos % (Auto) 2.0 Baso % (Auto) 0.4 Gran # 6.27 Lymph # (Auto) 2.1 [place] # (Auto) 0.7 H Eos # (Auto) 0.2 Baso # (Auto) 0.04 PT 10.4 INR 0.91 APTT 32.5 D-Dimer, Quantitative 461 H Sodium 140 Potassium 4.1 Chloride 110 H Carbon Dioxide 26 Anion Gap 8 L BUN 28 H Creatinine 1.0 Est GFR ( Amer) > 60 Est GFR (Non-Af Amer) 60 Random Glucose 233 H Calcium 8.9 Magnesium 2.2 Total Bilirubin 0.2 AST 23 ALT 21 Alkaline Phosphatase 58 Lactate Dehydrogenase 620 Total Creatine Kinase 104 Troponin I < 0.01 NT-Pro-B Natriuret Pep 912 H Total Protein 6.1 Albumin 3.0 Globulin 3.2 Albumin/Globulin Ratio 0.9 L Free T4 TSH 3rd Generation Urine Color Urine Appearance Urine pH Ur Specific [place] Urine Protein Urine Glucose (UA) Urine Ketones Urine Blood Urine Nitrate Urine Bilirubin Urine Urobilinogen Ur Leukocyte Esterase Urine RBC Urine WBC Ur Epithelial Cells 10/23/18 10/23/18 19:30 20:30 WBC RBC Hgb Hct MCV MCH MCHC RDW Plt Count MPV Gran % Lymph % (Auto) [place] % (Auto) Eos % (Auto) Baso % (Auto) Gran # Lymph # (Auto) [place] # (Auto) Eos # (Auto) Baso # (Auto) PT INR APTT D-Dimer, Quantitative Sodium Potassium Chloride Carbon Dioxide Anion Gap BUN Creatinine Est GFR ( Amer) Est GFR (Non-Af Amer) Random Glucose Calcium Magnesium Total Bilirubin AST ALT Alkaline Phosphatase Lactate Dehydrogenase Total Creatine Kinase Troponin I NT-Pro-B Natriuret Pep Total Protein Albumin Globulin Albumin/Globulin Ratio Free T4 1.15 TSH 3rd Generation 0.65 Urine Color Straw Urine Appearance Clear Urine pH 6.0 Ur Specific [place] 1.020 Urine Protein 100 H Urine Glucose (UA) >=1000 Urine Ketones Negative Urine Blood Trace-intact H Urine Nitrate Negative Urine Bilirubin Negative Urine Urobilinogen 0.2 Ur Leukocyte Esterase Negative Urine RBC 5 - 10 Urine WBC 15 - 20 Ur Epithelial Cells Many Assessment & Plan - Assessment and Plan (Free Text) Assessment: Pt is a 43 yo F with pmhx of DM, HTN, HFpEF, pancreatic mass s/p resection in 2016 who presents to the ED with complaints of chest pain and palpitations x2 days. CXR in ED is negative and BNP is elevated at 912. D-dimer was elevated at 461 but CTA was negative for PE. Plan: 1. Chest pain r/o ACS: - EKG = NSR @ [address] elevations - Pt is asymptomatic at this time - f/u trops - f/u AM EKG - f/u TSH - f/u lipid profile - Cardiology consult - ASA 81 qd - Metoprolol 25 BID 2. SOB w/ hx of HFpEF: Self-resolved - BNP is elevated at 912 - CTA = no PE f/u official read - No signs of edema on exam - CXR = no pleural effusion f/u official read - Cont to monitor 3. Normocytic Anemia: - f/u iron, TIBC and ferritin - f/u B12 and folate - F/u retic count - Venofer IVP 4. Retro-peritoneal mass seen on CT: - f/u official read - ? CT w/ IV & PO Contrast on Thursday since CTA was done last night. 5. Hx of DM: - ISS - f/u HbgA1c 6. Hx of HTN: - Metoprolol 25 BID 7. PPX: DVT: Heparin GI: Protonix 40 IVP Case seen and discussed with Dr. Eyal Jones DO Internal Medicine Resident PGY-1 <Phil Birch - Last Filed: 10/26/18 19:43> Results - Vital Signs Recent Vital Signs: Last Vital Signs Temp 97.8 F 10/25/18 17:32 Pulse 86 10/25/18 17:32 Resp 18 10/25/18 17:32 BP 152/90 H 10/25/18 17:32 Pulse Ox 97 10/25/18 06:00 - Labs Result Diagrams: 10/25/18 05:40 10/25/18 05:40 Attending/Attestation - Attestation I have personally seen and examined this patient.: Yes I have fully participated in the care of the patient.: Yes I have reviewed all pertinent clinical information: Yes
[2018-10-24] MEDS ORDERED: Dextrose 50% SYRINGE Inj (50 ml) IVP PRN (02:21)
[2018-10-24] MEDS ORDERED: Iron Sucrose 100 mg/5 ml Inj IVP ONE (06:00)
[2018-10-24] MEDS: Insulin Lispro (humaLOG) LOW Coverage SC SCH ×2 (07:35→11:46)
[2018-10-24 07:49] LABS: IRON 211 ug/dL (45-180); LDL CHOLESTEROL 105 mg/dL (0-129); TROPONIN I < 0.01 ng/mL
[2018-10-24 07:53] LABS: ALB/GLOB RATIO 0.9 (1.1-1.8); ALBUMIN 3.1 g/dL (3.0-4.8); ALT/SGPT 21 U/L (7-56); AST/SGOT 21 U/L (14-36); CALCIUM 9.2 mg/dL (8.4-10.5); GFR NON-AFRICAN AMERICAN > 60; HDL CHOLESTEROL 68 mg/dL (29-60)
[2018-10-24 07:54] LABS: BLOOD UREA NITROGEN 22 mg/dL (7-21)
[2018-10-24 08:06] LABS: TOTAL IRON BINDING CAPACITY 314 ug/dL (265-497)
[2018-10-24 08:09] LABS: BASO # 0.05 K/mm3 (0.0-2.0); BASO % 0.5 % (0.0-3.0); EOS # 0.2 (0.0-0.7); EOS % 2.3 % (1.5-5.0); GRAN # 5.86 (1.4-6.5); GRAN % 62.3 % (50.0-68.0); HEMOGLOBIN 9.2 g/dL (12.0-16.0); LYMPH # 2.4 (1.2-3.4); LYMPH % 25.6 % (22.0-35.0); MEAN CELL VOLUME 84.3 fl (80.0-105.0); MEAN CORPUSCULAR HEMOGLOBIN 26.7 pg (25.0-35.0); MEAN CORPUSCULAR HGB CONC 31.6 g/dl (31.0-37.0); MONO # 0.9 (0.1-0.6); MONO % 9.3 % (1.0-6.0); RBC 3.45 10^6/uL (3.5-6.1); WHITE BLOOD COUNT 9.4 10^3/uL (4.5-11.0)
[2018-10-24 09:05] LABS: % IRON SATURATION 67 % (20-55)
--- NOTE | 2018-10-24 09:54 | RAD ---
Date of service: 10/23/2018 HISTORY: SOB COMPARISON: Comparison chest 10/01/2018.. Correlation also made with concurrent CT chest TECHNIQUE: Chest PA and lateral FINDINGS: LUNGS: No active pulmonary disease. PLEURA: No significant pleural effusion identified. No pneumothorax apparent. CARDIOVASCULAR: No aortic atherosclerotic calcification present. Normal cardiac size. No pulmonary vascular congestion. OSSEOUS STRUCTURES: No significant abnormalities. VISUALIZED UPPER ABDOMEN: Normal. OTHER FINDINGS: None. IMPRESSION: No active disease.
--- NOTE | 2018-10-24 11:56 | CT ---
Date of service: 10/23/2018 PROCEDURE: CT Chest with contrast (Pulmonary Angiogram) HISTORY: Elevated D-dimer COMPARISON: None available. TECHNIQUE: Axial computed tomography images were obtained of the chest in the pulmonary arterial phase of enhancement. Coronal and sagittal reformatted images were created and reviewed. Intravenous contrast dose: 100 cc Omnipaque 350 contrast material. The Radiation dose: Total exam DLP = 360.91 mGy-cm. This CT exam was performed using one or more of the following dose reduction techniques: Automated exposure control, adjustment of the mA and/or kV according to patient size, and/or use of iterative reconstruction technique. FINDINGS: PULMONARY ARTERIES: The visualized pulmonary trunk, right and left main, lobar, segmental and proximal subsegmental branches of the pulmonary arteries are well opacified with no definitive filling defects seen to suggest acute central pulmonary embolus.. Pulmonary trunk measures approximately 3.2 cm. AORTA: Ascending thoracic aorta measures approximately 3.73 cm. Descending thoracic aorta measures approximately 2.3 cm.. No aortic atherosclerotic calcification or mural plaque present. LUNGS: There appears to be some minimal above passive/dependent type atelectasis both posterior lower lung arevalo. No focal consolidation PLEURAL SPACES: Unremarkable. No effusion or pneumothorax. HEART: Heart appears mildly enlarged. No significant pericardial effusion.. No cardiomegaly. No significant pericardial effusion. LYMPH NODES: There are a few small on mediastinal lymph nodes 1 in the prevascular space measuring approximately 8.3 mm. There also appears to be a small right hilar lymph node. Trachea midline and patent with no large endoluminal lesions. Small hiatal hernia. There appears to be a large amount of stool within the BONES, CHEST WALL: Mild multilevel degenerative spondylosis of the lower cervical and thoracic spine. OTHER FINDINGS: Note made of soft tissue within the anterior margin of the retroperitoneum which may secondary to unopacified loops of small bowel however the possibility of retroperitoneal adenopathy not excluded. Consider follow-up of CT scan of the abdomen and pelvis. There appears to be a large amount of stool within the transverse colon suggesting mild fecal retention/constipation. IMPRESSION: No evidence of acute central pulmonary embolus. Soft tissue within the anterior retroperitoneum probably represents a combination of unopacified loops of small bowel however the possibility of adenopathy cannot be excluded. Consider follow-up contrast-enhanced CT scan of the abdomen.
[2018-10-24 12:18] LABS: FERRITIN 13.3 ng/mL
[2018-10-24 12:50] LABS: FOLATE 19.3 ng/mL
--- NOTE | 2018-10-24 13:05 | CP.PCM.PN ---
<Onofre Harper - Last Filed: 10/24/18 13:21> Subjective - Date & Time of Evaluation Date of Evaluation: 10/24/18 Time of Evaluation: 09:00 - Subjective Subjective: Onofre Harper PGY-1 Progress Note for Hospitalist Service Patient seen and evaluated at bedside. No acute complaints at this time. Hypoglycemic episodes early in morning were asymptomatic, after which patient was given amp of D50. Denies chest pain, palpitations at this time. Mild shortness of breath. Patient was sleeping lying flat on bed without any obvious respiratory difficulty. Objective - Vital Signs/Intake and Output Vital Signs (last 24 hours): Temp Pulse Resp BP Pulse Ox 98.3 F 80 17 123/72 98 10/24/18 12:00 10/24/18 12:00 10/24/18 12:00 10/24/18 12:00 10/24/18 00:01 Intake and Output: 10/24/18 10/24/18 06:59 18:59 Intake Total 0 0 Balance 0 0 - Medications Medications: Current Medications Aspirin (Ecotrin) 81 mg PO DAILY [facility] Last Admin: 10/24/18 09:06 Dose: 81 mg Atorvastatin Calcium (Lipitor) 20 mg PO HS [facility] Dextrose (Dextrose 50% Inj) 50 ml IVP PRN PRN PRN Reason: Low blood sugar Last Admin: 10/24/18 07:31 Dose: 50 ml Dextrose (Glutose 15) 15 gm PO PRN PRN PRN Reason: Low blood sugar Heparin Sodium (Porcine) (Heparin) 5,000 units SC Q12 [facility]; Protocol Last Admin: 10/24/18 09:05 Dose: 5,000 units Insulin Human Lispro (Humalog Low) 0 units SC AC [facility]; Protocol Last Admin: 10/24/18 11:46 Dose: Not Given Metoprolol Tartrate (Lopressor) 25 mg PO BID [facility] Last Admin: 10/24/18 09:06 Dose: 25 mg - Labs Labs: 10/24/18 07:00 10/24/18 07:00 PT 10.4 SECONDS (9.4-12.5) 10/23/18 19:30 INR 0.91 10/23/18 19:30 APTT 32.5 Seconds (25.1-36.5) 10/23/18 19:30 - Additional Findings Additional findings: - Constitutional Appears: Well, Non-toxic, No Acute Distress - Head Exam Head Exam: ATRAUMATIC, NORMAL INSPECTION, NORMOCEPHALIC - Eye Exam Eye Exam: EOMI, Normal appearance, PERRL - ENT Exam ENT Exam: Mucous Membranes Dry - Respiratory Exam Respiratory Exam: Clear to Auscultation Bilateral, NORMAL BREATHING PATTERN. absent: Accessory Muscle Use, Decreased Breath Sounds, Rales, Rhonchi, Wheezes, Respiratory Distress, Stridor - Cardiovascular Exam Cardiovascular Exam: RRR, +S1, +S2. absent: Gallop, Rubs - GI/Abdominal Exam GI & Abdominal Exam: Normal Bowel Sounds, Soft. absent: Firm, Mass, Tenderness - Extremities Exam Extremities exam: Positive for: normal capillary refill, normal inspection, pedal pulses present. Negative for: calf tenderness, pedal edema - Back Exam Back exam: NORMAL INSPECTION. absent: CVA tenderness (L), CVA tenderness (R) - Neurological Exam Neurological exam: Alert, Oriented x3 - Psychiatric Exam Psychiatric exam: Normal Affect, Normal Mood - Skin Skin Exam: Dry, Intact, Normal Color, Warm Assessment and Plan - Assessment and Plan (Free Text) Assessment: 43 yo F with pmhx of DM, HTN, HFpEF, pancreatic mass s/p resection in 2016 who presents to the ED with complaints of chest pain and palpitations x2 days. CXR in ED is negative and BNP is elevated at 912. D-dimer was elevated at 461 but C TA was negative for PE. Plan: Hx of HFpEF with Pleuritic Chest pain - EKG = NSR @ [address] elevations - EF 65% 10/10 - Pt is asymptomatic at this time - trops neg x3 - AM EKG shows NSR @ 81 bpm - lipid profile wnl - TSH 0.16 - Cardiology consult - Dr. Laird - ASA 81 daily - Metoprolol 25 BID Hypoglycemia- improved s/p amp D50 reported recently skipping meals, reports appetite a1c 8.2 continue to monitor recommended proper oral intake Med ISS SOB w/ hx of HFpEF: Self-resolved - BNP is elevated at 912 - CTA - no PE on official read, but cannot r/o adenopathy so will consider CT abd/pel - No signs of edema on exam - CXR - no pleural effusion or active disease - Cont to monitor Normocytic Anemia: - f/u iron, TIBC and ferritin - f/u B12 and folate - F/u retic count - Venofer IVP Retro-peritoneal mass seen on chest CT: - will consider CT abd/pelvis Hx of HTN: - Metoprolol 25 BID PPX: DVT: Heparin GI: Protonix 40 IVP Dispo: Confirm Lasix dose with pharmacy Patient seen, case reviewed and plan approved by Dr. Zhou. Onofre Harper, PGY-1 <Gino Zhou - Last Filed: 10/24/18 13:46> Objective - Vital Signs/Intake and Output Vital Signs (last 24 hours): Temp Pulse Resp BP Pulse Ox 98.3 F 80 17 123/72 98 10/24/18 12:00 10/24/18 12:00 10/24/18 12:00 10/24/18 12:00 10/24/18 00:01 Intake and Output: 10/24/18 10/24/18 06:59 18:59 Intake Total 0 0 Balance 0 0 - Medications Medications: Current Medications Aspirin (Ecotrin) 81 mg PO DAILY [facility] Last Admin: 10/24/18 09:06 Dose: 81 mg Atorvastatin Calcium (Lipitor) 20 mg PO HS [facility] Dextrose (Dextrose 50% Inj) 50 ml IVP PRN PRN PRN Reason: Low blood sugar Last Admin: 10/24/18 07:31 Dose: 50 ml Dextrose (Glutose 15) 15 gm PO PRN PRN PRN Reason: Low blood sugar Heparin Sodium (Porcine) (Heparin) 5,000 units SC Q12 [facility]; Protocol Last Admin: 10/24/18 09:05 Dose: 5,000 units Insulin Human Lispro (Humalog Med) 0 units SC [facility]; Protocol Metoprolol Tartrate (Lopressor) 25 mg PO BID [facility] Last Admin: 10/24/18 09:06 Dose: 25 mg - Labs Labs: 10/24/18 07:00 10/24/18 07:00 PT 10.4 SECONDS (9.4-12.5) 10/23/18 19:30 INR 0.91 10/23/18 19:30 APTT 32.5 Seconds (25.1-36.5) 10/23/18 19:30 Attending/Attestation - Attestation I have personally seen and examined this patient.: Yes I have fully participated in the care of the patient.: Yes I have reviewed all pertinent clinical information, including history, physical exam and plan: Yes Notes (Text): 10/24/18 13:40 Medical record note made by the resident after discussion with my direction and input after the patient was personally seen and examined by me. I have reviewed the chart and agree that the record accurately reflects by personal performance of the history, physical exam, data review, and medical decision-making, in the course for the patient. I have also personally directed the plan of care. 43 year old female with past medical history of diabetes, hypertension, pancreatic lesion s/p removal ,diastolic chf and anemia was admitted last night with dyspnea on exertion, atypical chest pain and hypoglycemia. EKG is negative for acute ischemic changes.Serial troponins are normal CTA is negative for PE on prelimnary report. Patient is not in over CHF, she is noncompliance with medication and diet.Recent Echo showed normal systolic function and grade I Diastolic dysfunction. We will resume home dose of oral lasix. [facility] consult Hypoglycemia, we will hold oral hypoglycemic.Blood sugars are improving.We will monitor.Hypoglycemia was likely due to decrease oral intake. Management plan was discussed in detail with patient. Education was provided. 1
[2018-10-24] MEDS: Insulin Lispro (humaLOG) MEDIUM Coverage SC SCH ×2 (17:03→22:39)
--- NOTE | 2018-10-24 21:19 | CARD ---
APPROVED REPORT Date of service: 10/23/2018 EKG Measurement Heart [id number] NM [id number] <Conclusion> Normal sinus rhythm Normal ECG
--- NOTE | 2018-10-24 22:15 | CARD ---
APPROVED REPORT Date of service: 10/24/2018 EKG Measurement Heart [id number] PA [id number] <Conclusion> Normal sinus rhythm Normal ECG
--- NOTE | 2018-10-25 00:18 | CON ---
DATE: 10/24/2018 REQUESTING PHYSICIAN: Dr. Zhou REASON FOR CONSULTATION: Chest pain. HISTORY: This is a 43-year-old woman with a longstanding history of hypertension and diabetes who presents to the emergency room with complaints of chest discomfort and palpitations for several days. She also had some associated dyspnea. On telemetry, she had a difficult time describing the quality of her chest discomfort. She denies any prior cardiac history. She states she has had diabetes for over 20 years as well as a history of hypertension. Her past medical history is notable for resection of unspecified pancreatic mass two years ago, details are unavailable at the time of the visit. CURRENT MEDICATIONS: Reportedly include insulin, Lipitor, Jardiance, metformin, Victoza, prednisone, and Lasix. ALLERGIES: None. SOCIAL HISTORY: She denies tobacco or alcohol use. FAMILY HISTORY: Father from complications of diabetes in his later years and mother's health history is unclear. There are no other family members with premature heart disease. REVIEW OF SYSTEMS: A 10-point review of systems is otherwise unremarkable. PHYSICAL EXAMINATION: GENERAL: She is a middle-aged woman who appears comfortable at rest. VITAL SIGNS: Blood pressure is 166/90 with pulse of 76 and sinus. Respirations are 16. She is afebrile. HEENT: Normocephalic, atraumatic. NECK: Supple. No JVD noted. CHEST: Clear to auscultation and percussion. HEART: PMI displaced laterally with soft systolic murmur at the left sternal border. ABDOMEN: Soft, nontender, normoactive bowel sounds. EXTREMITIES: No edema. SKIN: Warm and dry. PSYCHIATRIC: Normal mood and affect. NEUROLOGIC: Alert and oriented x3. No gross motor or sensory deficits noted. DIAGNOSTIC DATA: Initial troponin is negative. CK is 104, potassium 4.1, BUN and creatinine 28 and 1.0, glucose 233. White count 9.3, hemoglobin and hematocrit 8.8 and 27.8 with a platelet count 326,000. PT/PTT normal. D-dimer 461. BNP 912. Chest x-ray reveals normal cardiac silhouette with clear lung arevalo. Electrocardiogram reveals sinus rhythm with nonspecific ST-T abnormalities. An echocardiogram performed last month revealed normal LV systolic function with mild concentric LVH and mild mitral regurgitation. IMPRESSION: 1. Chest pain, etiology unclear, symptoms appear somewhat vague. She does have significant cardiac risk factors given her longstanding diabetes, history of hypertension, and probable hyperlipidemia. 2. Anemia, the etiology is uncertain, nature of evaluation. RECOMMENDATIONS: Aspirin and beta-kaylan therapy would be administered for now. Lipid therapy should continue as well. Anemia workup should be initiated. A screening stress test will be reasonable at this time given her symptoms of chest pain and risk factors. Thank you for this consultation and we will be happy to follow along throughout her hospital course as needed. Osvaldo Upton MD
[2018-10-25 06:24] LABS: BASO # 0.04 K/mm3 (0.0-2.0); BASO % 0.5 % (0.0-3.0); EOS # 0.3 (0.0-0.7); EOS % 3.4 % (1.5-5.0); GRAN # 4.55 (1.4-6.5); GRAN % 61.6 % (50.0-68.0); HEMOGLOBIN 8.9 g/dL (12.0-16.0); LYMPH # 1.8 (1.2-3.4); LYMPH % 24.2 % (22.0-35.0); MEAN CORPUSCULAR HEMOGLOBIN 26.9 pg (25.0-35.0); MEAN PLATELET VOLUME 10.5 fl (7.0-11.0); MONO # 0.8 (0.1-0.6); MONO % 10.3 % (1.0-6.0); RBC 3.31 10^6/uL (3.5-6.1); RED CELL DISTRIBUTION WIDTH 15.6 % (11.5-14.5); WHITE BLOOD COUNT 7.4 10^3/uL (4.5-11.0)
[2018-10-25] MEDS ORDERED: Potassium Chloride 20 mEq ER Tab PO STA (07:11)
[2018-10-25 07:13] LABS: ALB/GLOB RATIO 0.9 (1.1-1.8); ALBUMIN 2.7 g/dL (3.0-4.8); ALT/SGPT 18 U/L (7-56); AST/SGOT 22 U/L (14-36); BLOOD UREA NITROGEN 21 mg/dL (7-21); CALCIUM 9.1 mg/dL (8.4-10.5); GFR NON-AFRICAN AMERICAN > 60
[2018-10-25] MEDS ORDERED: Ergocalciferol 50,000 Intl Units Cap PO SCH (07:30)
--- NOTE | 2018-10-25 08:09 | CP.PCM.PN ---
Subjective - Date & Time of Evaluation Date of Evaluation: 10/25/18 Time of Evaluation: 07:00 - Subjective Subjective: Stable on 2R. No CP or SOB V/S noted. RSR PE: Lungs: clear Cor: S1S2 Abd: soft Ext.: no edema Labs noted: H/H = 8.9/27.8, trops X 3 Neg., BMP OK ECG: RSR, Normal x2 Objective - Vital Signs/Intake and Output Vital Signs (last 24 hours): Temp Pulse Resp BP Pulse Ox 98.4 F 80 20 168/88 H 100 10/25/18 00:01 10/25/18 02:00 10/25/18 00:01 10/25/18 00:01 10/25/18 00:01 Intake and Output: 10/25/18 10/25/18 06:59 18:59 Intake Total 1280 Output Total 0 Balance 1280 - Medications Medications: Current Medications Acetaminophen (Tylenol 325mg Tab) 650 mg PO Q6H PRN PRN Reason: Headache Last Admin: 10/24/18 17:06 Dose: 650 mg Aspirin (Ecotrin) 81 mg PO DAILY [facility] Last Admin: 10/24/18 09:06 Dose: 81 mg Atorvastatin Calcium (Lipitor) 20 mg PO HS [facility] Last Admin: 10/24/18 22:39 Dose: 20 mg Dextrose (Dextrose 50% Inj) 50 ml IVP PRN PRN PRN Reason: Low blood sugar Last Admin: 10/24/18 07:31 Dose: 50 ml Dextrose (Glutose 15) 15 gm PO PRN PRN PRN Reason: Low blood sugar Ergocalciferol (Drisdol 50,000 Intl Units Cap) 1 cap PO Q7D@0730 [facility] Heparin Sodium (Porcine) (Heparin) 5,000 units SC Q12 [facility]; Protocol Last Admin: 10/24/18 22:40 Dose: 5,000 units Insulin Human Lispro (Humalog Med) 0 units SC [facility]; Protocol Last Admin: 10/24/18 22:39 Dose: Not Given Metoprolol Tartrate (Lopressor) 25 mg PO BID [facility] Last Admin: 10/24/18 18:13 Dose: 25 mg - Labs Labs: 10/25/18 05:40 10/25/18 05:40 PT 10.4 SECONDS (9.4-12.5) 10/23/18 19:30 INR 0.91 10/23/18 19:30 APTT 32.5 Seconds (25.1-36.5) 10/23/18 19:30 Assessment and Plan - Assessment and Plan (Free Text) Assessment: CP/Papitations Anemia Diabetes HBP H/O pancreatic mass Plan: Nuclear stress test later today. Anemia w/u OOB as dhaval.
[2018-10-25 08:13] VITALS: O2SAT 97
[2018-10-25] MEDS: Insulin Lispro (humaLOG) MEDIUM Coverage SC SCH ×3 (10:48→17:44)
[2018-10-25 13:11] VITALS: RESP 18
--- NOTE | 2018-10-25 16:29 | CARD ---
APPROVED REPORT Date of service: 10/25/2018 Protocol: ARNULFO Test Type: Sestamibi Stress Test Attending Physician: Dr. Juan F Laird Referring Physician: Dr. Dr. Zhou Test Indications: Chest Pain. Height:5 ft 2 in Weight:146lbs Medications: tylenol,aspirin,Atorvastatin,Ergocalcife Heparin, Human Lispro insulin, Metoprolol,Kdur Medical History: 43 y/o woman with chest pain. Target HR: 175 bpm Resting ECG: RSR Resting Heart Rate: 77 bpm Resting Blood Pressure: 140/70mmHg Submaximum (85%): 149 bpm POST EXERCISE Reason for Termination: Fatigue Target HR: No Max HR: 150 bpm 86% of Maximum Predicted HR: 175 bpm Exercise duration: 10:45 min:sec, 4 Stage Exercise capacity: 12.9METs Max Blood Pressure: 150/80mmHg Blood Pressure response to exercise: Normal Heart Rate response to exercise: Normal Chest Pain: No, None Angina index: 0 Arrhythmia: No, None ST Change: Yes, 1.0 mm Deviation: 0 mm INTERPRETATION Stress EKG Conclusion: Symptom limited stress test which was negative for chest pain, significant ischemia and arrhythmia. Normal functional capacity. Nuclear scans pending. Signed by Juan F Laird Electronically Approved: 10/25/2018 14:31:30 EXAM: Myocardial Perfusion REST/STRESS Stress Test Type: Exercise Treadmill Imaging Protocol Rest Spect myocardial perfusion imaging was performed in supine position 45 minutes following the injection of 10.9 mCi of Tc-99 Myoview. At peak stress, the patient was injected intravenously with 30.2mCi of Tc-99 tetrofosmin after an exercise time of 10 minutes and 45 seconds. Gated Stress Spect was performed 65 minutes after intravenous Tc-99 Myoview injection. The images were gated to evaluate regional wall motion and calculate ventricular ejection fraction.Images were reconstructed using backfilter projection method in short horizontal and verticle long axis. Spect slices were generated. LV Perfusion The quality of the study is good. The left ventricle is within normal limits in size. The right ventricle is unremarkable. The lung uptake is normal. The distribution of tracer reveals mildly and diffusely decreased perfusion involving mid to distal anterior wall on the stress study. The remainder of the LV myocardium is unremarkable. The rest myocardial perfusion study shows no significant change. Wall Motion Wall motion study shows good contractility of the left ventricle. LVEF = 63%. Conclusion 1. Essentially normal SPECT myocardial perfusion study. 2. Fixed, anterior defect is most likely due to breast attenuation. 3. Normal gated wall motion of the left ventricle.
--- NOTE | 2018-10-25 17:18 | CP.PCM.DIS ---
<Onofre Harper - Last Filed: 10/25/18 20:48> Provider - Provider Date of Admission: 10/23/18 22:21 Attending physician: Fredi Gonzalez MD Primary care physician: Jesus Hinton MD Consults: 10/23/18 23:00 Cardiology Consult Routine Comment: Consulting Provider: Juan F Laird Consulting Physician: Juan F Laird Reason for Consult: Chest pain 10/24/18 10:16 Diabetic Education Referral Routine Comment: Physician Instructions: Reason For Exam: poor glycemic control Time Spent in preparation of Discharge (in minutes): 45 Hospital Course - Lab Results Lab Results: Most Recent Lab Values WBC 7.4 10^3/uL (4.5-11.0) D 10/25/18 05:40 RBC 3.31 10^6/uL (3.5-6.1) L 10/25/18 05:40 Hgb 8.9 g/dL (12.0-16.0) L 10/25/18 05:40 Hct 27.8 % (36.0-48.0) L 10/25/18 05:40 MCV 84.0 fl (80.0-105.0) 10/25/18 05:40 MCH 26.9 pg (25.0-35.0) 10/25/18 05:40 MCHC 32.0 g/dl (31.0-37.0) 10/25/18 05:40 RDW 15.6 % (11.5-14.5) H 10/25/18 05:40 Plt Count 350 10^3/uL (120.0-450.0) 10/25/18 05:40 MPV 10.5 fl (7.0-11.0) 10/25/18 05:40 Gran % 61.6 % (50.0-68.0) 10/25/18 05:40 Lymph % (Auto) 24.2 % (22.0-35.0) 10/25/18 05:40 [place] % (Auto) 10.3 % (1.0-6.0) H 10/25/18 05:40 Eos % (Auto) 3.4 % (1.5-5.0) 10/25/18 05:40 Baso % (Auto) 0.5 % (0.0-3.0) 10/25/18 05:40 Gran # 4.55 (1.4-6.5) 10/25/18 05:40 Lymph # (Auto) 1.8 (1.2-3.4) 10/25/18 05:40 [place] # (Auto) 0.8 (0.1-0.6) H 10/25/18 05:40 Eos # (Auto) 0.3 (0.0-0.7) 10/25/18 05:40 Baso # (Auto) 0.04 K/mm3 (0.0-2.0) 10/25/18 05:40 Retic Count 1.26 % (0.5-1.5) 10/24/18 07:00 PT 10.4 SECONDS (9.4-12.5) 10/23/18 19:30 INR 0.91 10/23/18 19:30 APTT 32.5 Seconds (25.1-36.5) 10/23/18 19:30 D-Dimer, Quantitative 461 ng/mlDDU (0-243) H 10/23/18 19:30 Sodium 136 mmol/L (132-148) 10/25/18 05:40 Potassium 4.1 mmol/L (3.6-5.0) 10/25/18 05:40 Chloride 105 mmol/L (98-107) 10/25/18 05:40 Carbon Dioxide 27 mmol/L (21-33) 10/25/18 05:40 Anion Gap 8 (10-20) L 10/25/18 05:40 BUN 21 mg/dL (7-21) 10/25/18 05:40 Creatinine 0.8 mg/dl (0.7-1.2) 10/25/18 05:40 Est GFR ( Amer) > 60 10/25/18 05:40 Est GFR (Non-Af Amer) > 60 10/25/18 05:40 POC Glucose (mg/dL) 343 mg/dL (65-110) H 10/25/18 16:30 Random Glucose 263 mg/dL (70-110) H 10/25/18 05:40 Hemoglobin A1c 8.2 % (4.2-6.5) H 10/24/18 07:00 Calcium 9.1 mg/dL (8.4-10.5) 10/25/18 05:40 Phosphorus 4.9 mg/dL (2.5-4.5) H 10/24/18 07:00 Magnesium 2.1 mg/dL (1.7-2.2) 10/24/18 07:00 Iron 211 ug/dL (45-180) H 10/24/18 07:00 TIBC 314 ug/dL (265-497) 10/24/18 07:00 % Saturation 67 % (20-55) H 10/24/18 07:00 Ferritin 13.3 ng/mL 10/24/18 07:00 Total Bilirubin 0.2 mg/dL (0.2-1.3) 10/25/18 05:40 AST 22 U/L (14-36) 10/25/18 05:40 ALT 18 U/L (7-56) 10/25/18 05:40 Alkaline Phosphatase 58 U/L (38-126) 10/25/18 05:40 Lactate Dehydrogenase 620 U/L (333-699) 10/23/18 19:30 Total Creatine Kinase 104 U/L (35-230) 10/23/18 19:30 Troponin I < 0.01 ng/mL 10/24/18 11:15 NT-Pro-B Natriuret Pep 912 pg/mL (0-450) H 10/23/18 19:30 Total Protein 5.8 g/dL (5.8-8.3) 10/25/18 05:40 Albumin 2.7 g/dL (3.0-4.8) L 10/25/18 05:40 Globulin 3.1 gm/dL 10/25/18 05:40 Albumin/Globulin Ratio 0.9 (1.1-1.8) L 10/25/18 05:40 Triglycerides 84 mg/dL (35-160) 10/24/18 07:00 Cholesterol 199 mg/dL (130-200) 10/24/18 07:00 LDL Cholesterol Direct 105 mg/dL (0-129) 10/24/18 07:00 HDL Cholesterol 68 mg/dL (29-60) H 10/24/18 07:00 Vitamin B12 401 pg/mL (239-931) 10/24/18 07:00 Folate 19.3 ng/mL 10/24/18 07:00 Free T4 1.15 ng/dL (0.78-2.19) 10/23/18 19:30 Free T3 pg/mL 2.87 pg/mL (2.77-5.27) 10/23/18 19:30 TSH 3rd Generation 0.65 mIU/mL (0.46-4.68) 10/23/18 19:30 Urine Color Straw (YELLOW) 10/23/18 20:30 Urine Appearance Clear (CLEAR) 10/23/18 20:30 Urine pH 6.0 (4.7-8.0) 10/23/18 20:30 Ur Specific Weaver 1.020 (1.005-1.035) 10/23/18 20:30 Urine Protein 100 mg/dL (<30 mg/dL) H 10/23/18 20:30 Urine Glucose (UA) >=1000 mg/dL (NEGATIVE) 10/23/18 20:30 Urine Ketones Negative mg/dL (NEGATIVE) 10/23/18 20:30 Urine Blood Trace-intact (NEGATIVE) H 10/23/18 20:30 Urine Nitrate Negative (NEGATIVE) 10/23/18 20:30 Urine Bilirubin Negative (NEGATIVE) 10/23/18 20:30 Urine Urobilinogen 0.2 E.U./dL (<1 E.U./dL) 10/23/18 20:30 Ur Leukocyte Esterase Negative Christine/uL (NEGATIVE) 10/23/18 20:30 Urine RBC 5 - 10 /hpf (0-2) 10/23/18 20:30 Urine WBC 15 - 20 /hpf (0-6) 10/23/18 20:30 Ur Epithelial Cells Many /hpf (0-5) 10/23/18 20:30 - Hospital Course Hospital Course: Onofre Harper, PGY-1 Discharge Summary for Hospitalist Service 43 yo F with PMHx of DM, HTN, HFpEF 65% on 10/10, pancreatic mass s/p resection in 2016 who presented with complaints of chest pain and palpitations. Chest X- ray showed no pleural effusion or active disease. EKG showed NSR @ [address] or T wave changes. D-dimer was elevated, so a follow up Chest CT was ordered. It showed no evidence of acute pulmonary embolus but did reveal soft tissue within the anterior retroperitoneum with adenopathy. Troponins were trended and were negative. Cardiology (Dr. Laird) was consulted. Myocardial Exercise nuclear Stress Test was ordered which revealed symptom limited test which was negative for cardiac chest pain, ischemia and arrythmia. Patient had episode of hypoglycemia which resolved as well. Patient stated that she often uses her own personal insulin pen even when hospitalized on insulin sliding scale, which may have resulted in hypoglycemic episode. Otherwise, patient's POC sugars were between 130-340, and patient was told to follow up with primary care physician regarding outpatient insulin/oral medications regimen. Patient was found to have normocytic anemia and was instructed to follow up as an outpatient with primary as well. Patient was also instructed to follow up regarding the retroperitoneal soft tissue associated with adenopathy per his primary care physician's recommendations. Patient was also instructed to follow up with his personal juice scaleman regarding results of the stress test and further steps. Call was made to primary care physician Dr. Hinton in [place] and patient's hospital course was reviewed in detail. Patient was at bedside with family member at time of discharge. Patient's medication changes were reviewed in detail and to patient's satisfaction. Insulin regimen was reviewed. Cardiac meds were also reviewed. Need for strict follow up with PCP and juice scaleman was reinforced. Patient was hemodynamically stable and prepared for discharge. For further detail, please refer to patient's electronic medical chart. Patient seen, case reviewed and plan approved by Dr. Gonzalez. Discharge Exam - Additional Findings Additional findings: - Constitutional Appears: Well, Non-toxic, No Acute Distress - Head Exam Head Exam: ATRAUMATIC, NORMAL INSPECTION, NORMOCEPHALIC - Eye Exam Eye Exam: EOMI, Normal appearance, PERRL - ENT Exam ENT Exam: Mucous Membranes Dry - Respiratory Exam Respiratory Exam: Clear to Auscultation Bilateral, NORMAL BREATHING PATTERN. absent: Accessory Muscle Use, Decreased Breath Sounds, Rales, Rhonchi, Wheezes, Respiratory Distress, Stridor - Cardiovascular Exam Cardiovascular Exam: RRR, +S1, +S2. absent: Gallop, Rubs - GI/Abdominal Exam GI & Abdominal Exam: Normal Bowel Sounds, Soft. absent: Firm, Mass, Tenderness - Extremities Exam Extremities exam: Positive for: normal capillary refill, normal inspection, pedal pulses present. Negative for: calf tenderness, pedal edema - Back Exam Back exam: NORMAL INSPECTION. absent: CVA tenderness (L), CVA tenderness (R) - Neurological Exam Neurological exam: Alert, Oriented x3 - Psychiatric Exam Psychiatric exam: Normal Affect, Normal Mood - Skin Skin Exam: Dry, Intact, Normal Color, Warm Discharge Plan - Discharge Medications Prescriptions: Aspirin [Ecotrin] 81 mg PO DAILY #30 tabec Metoprolol Tartrate [Lopressor] 25 mg PO BID #60 tab - Follow Up Plan Condition: STABLE Disposition: HOME/ ROUTINE Instructions: Heart Failure (DC), Chest Pain (DC), Pacemaker (DC), Pulmonary Edema (DC), Ascites (DC) Additional Instructions: Please follow up with your primary care doctor Dr. Hinton regarding your anemia, sugar control and result of CT scan for possible retro-peritoneal lymph nodes. Please follow up regarding CT abdomen/pelvis on outpatient basis based on your Dr. Hinton's recommendations. Dr. Hinton was called regarding updates from recent hospitalization. Please follow up with your personal juice scaleman at [facility] [place] in his office with your appointment in a week. Continue with Aspirin, Metoprolol and statin until that time. Please continue with your oral medications as prescribed, but please hold your injectable insulin until you visit your PMD for recommendations. Should symptoms worsen or reoccur, please visit nearest emergency department. Referrals: Jesus Hinton MD [Primary Care Provider] - <Fredi Gonzalez - Last Filed: 10/26/18 07:39> Provider - Provider Date of Admission: 10/23/18 22:21 Attending physician: Fredi Gonzalez MD Primary care physician: Jesus Hinton MD Consults: 10/23/18 23:00 Cardiology Consult Routine Comment: Consulting Provider: Juan F Laird Consulting Physician: Juan F Laird Reason for Consult: Chest pain 10/24/18 02:00 Transition In Care/Readmission Reduction Routine Comment: Physician Instructions: Reason For Exam: new admit 10/24/18 10:16 Diabetic Education Referral Routine Comment: Physician Instructions: Reason For Exam: poor glycemic control Hospital Course - Lab Results Lab Results: Micro Results 10/23/18 20:30 Urine Urine Culture - Final No Growth (<1,000 CFU/ML) Most Recent Lab Values WBC 7.4 10^3/uL (4.5-11.0) D 10/25/18 05:40 RBC 3.31 10^6/uL (3.5-6.1) L 10/25/18 05:40 Hgb 8.9 g/dL (12.0-16.0) L 10/25/18 05:40 Hct 27.8 % (36.0-48.0) L 10/25/18 05:40 MCV 84.0 fl (80.0-105.0) 10/25/18 05:40 MCH 26.9 pg (25.0-35.0) 10/25/18 05:40 MCHC 32.0 g/dl (31.0-37.0) 10/25/18 05:40 RDW 15.6 % (11.5-14.5) H 10/25/18 05:40 Plt Count 350 10^3/uL (120.0-450.0) 10/25/18 05:40 MPV 10.5 fl (7.0-11.0) 10/25/18 05:40 Gran % 61.6 % (50.0-68.0) 10/25/18 05:40 Lymph % (Auto) 24.2 % (22.0-35.0) 10/25/18 05:40 [place] % (Auto) 10.3 % (1.0-6.0) H 10/25/18 05:40 Eos % (Auto) 3.4 % (1.5-5.0) 10/25/18 05:40 Baso % (Auto) 0.5 % (0.0-3.0) 10/25/18 05:40 Gran # 4.55 (1.4-6.5) 10/25/18 05:40 Lymph # (Auto) 1.8 (1.2-3.4) 10/25/18 05:40 [place] # (Auto) 0.8 (0.1-0.6) H 10/25/18 05:40 Eos # (Auto) 0.3 (0.0-0.7) 10/25/18 05:40 Baso # (Auto) 0.04 K/mm3 (0.0-2.0) 10/25/18 05:40 Retic Count 1.26 % (0.5-1.5) 10/24/18 07:00 PT 10.4 SECONDS (9.4-12.5) 10/23/18 19:30 INR 0.91 10/23/18 19:30 APTT 32.5 Seconds (25.1-36.5) 10/23/18 19:30 D-Dimer, Quantitative 461 ng/mlDDU (0-243) H 10/23/18 19:30 Sodium 136 mmol/L (132-148) 10/25/18 05:40 Potassium 4.1 mmol/L (3.6-5.0) 10/25/18 05:40 Chloride 105 mmol/L (98-107) 10/25/18 05:40 Carbon Dioxide 27 mmol/L (21-33) 10/25/18 05:40 Anion Gap 8 (10-20) L 10/25/18 05:40 BUN 21 mg/dL (7-21) 10/25/18 05:40 Creatinine 0.8 mg/dl (0.7-1.2) 10/25/18 05:40 Est GFR ( Amer) > 60 10/25/18 05:40 Est GFR (Non-Af Amer) > 60 10/25/18 05:40 POC Glucose (mg/dL) 343 mg/dL (65-110) H 10/25/18 16:30 Random Glucose 263 mg/dL (70-110) H 10/25/18 05:40 Hemoglobin A1c 8.2 % (4.2-6.5) H 10/24/18 07:00 Calcium 9.1 mg/dL (8.4-10.5) 10/25/18 05:40 Phosphorus 4.9 mg/dL (2.5-4.5) H 10/24/18 07:00 Magnesium 2.1 mg/dL (1.7-2.2) 10/24/18 07:00 Iron 211 ug/dL (45-180) H 10/24/18 07:00 TIBC 314 ug/dL (265-497) 10/24/18 07:00 % Saturation 67 % (20-55) H 10/24/18 07:00 Ferritin 13.3 ng/mL 10/24/18 07:00 Total Bilirubin 0.2 mg/dL (0.2-1.3) 10/25/18 05:40 AST 22 U/L (14-36) 10/25/18 05:40 ALT 18 U/L (7-56) 10/25/18 05:40 Alkaline Phosphatase 58 U/L (38-126) 10/25/18 05:40 Lactate Dehydrogenase 620 U/L (333-699) 10/23/18 19:30 Total Creatine Kinase 104 U/L (35-230) 10/23/18 19:30 Troponin I < 0.01 ng/mL 10/24/18 11:15 NT-Pro-B Natriuret Pep 912 pg/mL (0-450) H 10/23/18 19:30 Total Protein 5.8 g/dL (5.8-8.3) 10/25/18 05:40 Albumin 2.7 g/dL (3.0-4.8) L 10/25/18 05:40 Globulin 3.1 gm/dL 10/25/18 05:40 Albumin/Globulin Ratio 0.9 (1.1-1.8) L 10/25/18 05:40 Triglycerides 84 mg/dL (35-160) 10/24/18 07:00 Cholesterol 199 mg/dL (130-200) 10/24/18 07:00 LDL Cholesterol Direct 105 mg/dL (0-129) 10/24/18 07:00 HDL Cholesterol 68 mg/dL (29-60) H 10/24/18 07:00 Vitamin B12 401 pg/mL (239-931) 10/24/18 07:00 Folate 19.3 ng/mL 10/24/18 07:00 Free T4 1.15 ng/dL (0.78-2.19) 10/23/18 19:30 Free T3 pg/mL 2.87 pg/mL (2.77-5.27) 10/23/18 19:30 TSH 3rd Generation 0.65 mIU/mL (0.46-4.68) 10/23/18 19:30 Urine Color Straw (YELLOW) 10/23/18 20:30 Urine Appearance Clear (CLEAR) 10/23/18 20:30 Urine pH 6.0 (4.7-8.0) 10/23/18 20:30 Ur Specific Weaver 1.020 (1.005-1.035) 10/23/18 20:30 Urine Protein 100 mg/dL (<30 mg/dL) H 10/23/18 20:30 Urine Glucose (UA) >=1000 mg/dL (NEGATIVE) 10/23/18 20:30 Urine Ketones Negative mg/dL (NEGATIVE) 10/23/18 20:30 Urine Blood Trace-intact (NEGATIVE) H 10/23/18 20:30 Urine Nitrate Negative (NEGATIVE) 10/23/18 20:30 Urine Bilirubin Negative (NEGATIVE) 10/23/18 20:30 Urine Urobilinogen 0.2 E.U./dL (<1 E.U./dL) 10/23/18 20:30 Ur Leukocyte Esterase Negative Christine/uL (NEGATIVE) 10/23/18 20:30 Urine RBC 5 - 10 /hpf (0-2) 10/23/18 20:30 Urine WBC 15 - 20 /hpf (0-6) 10/23/18 20:30 Ur Epithelial Cells Many /hpf (0-5) 10/23/18 20:30 Attending/Attestation - Attestation I have personally seen and examined this patient.: Yes I have fully participated in the care of the patient.: Yes I have reviewed all pertinent clinical information, including history, physical exam and plan: Yes Notes (Text): 10/25/18 43 year old female with past medical history of hypertension, diabetes, chronic anemia and pancreatic mass s/p resection who presented with complaint of chest pain and palpitations. D-dimer was elevated but CT angio was negative for PE. Serial cardiac enzymes were negative and ACS was ruled out. She was seen by cardiology and underwent stress test today which was essentially negative. CT scan showed ?soft tissue / retroperitoneum adenopathy vs unopacified loops of small bowel. Findings were discussed with patient and pmd and we recommended to repeat CT contrast study as outpatient in addition to further workup for anemia. During hospital stay she was noted to be hyoglycemic. This occurred last admission as well and patient reports she has frequent hypoglycemic episodes at home. Her A1c is 8.2 and she is on few diabetic medications including insulin at home. I advised her to hold her insulin for now and keep log book with recorded fingersticks to bring to her primary within one week where she can have eve medications adjusted accordingly. Consider endocrine evaluation for optimization. Fredi Gonzalez MD Hospitalist.
[2018-10-25 17:33] VITALS: BP 152/90; PULSE 86; TEMP 97.8
[2018-10-25] MEDS ORDERED: Pneumococcal 23-Valent Vaccine IM ONE (18:50)
== END 2018-10-25 19:11 | disposition home or self-care (01) ==
LOC: ED 18:49 → ERH 22:21 → 2RNO 23:19
PROVIDERS: ADMIT Internal Medicine; ATTEND Internal Medicine
DX: R07.81 Pleurodynia (principal); E10.649 Type 1 diabetes mellitus with hypoglycemia without coma; E10.65 Type 1 diabetes mellitus with hyperglycemia; D64.9 Anemia, unspecified; E78.5 Hyperlipidemia, unspecified; I11.0 Hypertensive heart disease with heart failure; I42.9 Cardiomyopathy, unspecified; I50.32 Chronic diastolic (congestive) heart failure; Z79.4 Long term (current) use of insulin; Z83.3 Family history of diabetes mellitus; R19.09 Other intra-abdominal and pelvic swelling, mass and lump; R59.0 Localized enlarged lymph nodes; Z23 Encounter for immunization
CPT/HCPCS: 36415; 71046; 71275; 78452; 80053; 80061; 81001; 82550; 82607; 82728; 82746; 82948; 83036; 83540; 83550; 83615; 83735; 83880; 84100; 84439; 84443; 84481; 84484; 85025; 85044; 85378; 85610; 85730; 87086; 90471; 90732; 93005; 93017; 99285; A9502; C9113; G0378; J1644; J1756; Q9967

== ENCOUNTER 2018-12-30 15:36 | Emergency (ER) | payer MEDICAID ==
[2018-12-30 16:04] VITALS: RESP 18; TEMP 98.7; BMI 26.5
[2018-12-30] MEDS ORDERED: Sodium Chloride 0.9% 1,000 ML IV STA (16:22)
--- NOTE | 2018-12-30 16:24 | ED PDOC ---
Arrival/HPI - General Time Seen by Provider: 12/30/18 15:58 Historian: Patient - History of Present Illness Narrative History of Present Illness (Text): 12/30/18 16:23 43 year old female, whose past medical history includes diabetes, hypertension, cardiomyopathy, pancreatic mass (s/p resection 2015) presents to the emergency department for evaluation of anemia. Patient states she saw her PMD because she has been feeling fatigued for the past [address] Hinton sent her for blood work and labs show bun/creatinine 30/0.93, normal thyroids, normal vitamin b12, folate, vitamin d, hgb 8.6, mcv 86. Patient was given rx by Dr. Hinton to come to emergency department for hematology evaluation. Patient also reports secondary constipation with only intermittent relief with miraLAX. She denies fevers, chills, headache, dizziness, chest pain, shortness of breath, dyspnea on exertion, cough, abdominal pain, nausea, vomiting, diarrhea, back pain, neck pain, or any other complaint. PMD: Dr. Jesus Hinton 12/30/18 20:49 Time/Duration: < month (2 weeks) Symptom Onset: Gradual Symptom Course: Unchanged Activities at Onset: Light Context: Home Past Medical History - Provider Review Nursing Documentation Reviewed: Yes - Infectious Disease Hx of Infectious Diseases: None - Reproductive Currently : No - Cardiac Hx Hypertension: Yes - Pulmonary Hx Respiratory Disorders: No - Neurological Hx Neurological Disorder: No - HEENT Hx HEENT Disorder: No - Renal Hx Renal Disorder: No - Endocrine/Metabolic Hx Endocrine Disorders: Yes Hx Diabetes Mellitus Type 1: Yes (Pancreatic Tumor removed 2015) - Hematological/Oncological Hx Blood Disorders: No - Integumentary Hx Dermatological Disorder: No - Musculoskeletal/Rheumatological Hx Falls: No - Gastrointestinal Hx Pancreatitis: Yes (Tumor removed 2015) - Genitourinary/Gynecological Hx Genitourinary Disorders: No - Psychiatric Hx Psychophysiologic Disorder: No Hx Substance Use: No - Surgical History Other/Comment: pancreatic surgery - Anesthesia Hx Anesthesia: Yes - Suicidal Assessment Feels Threatened In Home Enviroment: No Family/Social History - Physician Review Nursing Documentation Reviewed: Yes Family/Social History: No Known Family HX Smoking Status: Never Smoked Hx Alcohol Use: No Hx Substance Use: No Hx Substance Use Treatment: No Allergies/Home Meds Allergies/Adverse Reactions: Allergies No Known Allergies Allergy (Verified 12/19/15 21:50) Home Medications: Home Meds Medication Instructions Recorded Confirmed Atorvastatin 20 mg PO HS 10/01/18 10/01/18 Basaglanastasiya Leyvapen U-100 50 units SQ HS 10/01/18 10/01/18 Drisdol 50,000 Intl Units Cap 1 cap PO QD7 10/01/18 10/01/18 Metformin HCl 1,000 mg PO BID 10/01/18 10/01/18 Novofine 32 10/01/18 Victoza 2-Thomas 6 mg SQ DAILY 10/01/18 10/01/18 Review of Systems - Review of Systems Constitutional: Fatigue Respiratory: absent: SOB, Cough Cardiovascular: absent: Chest Pain Gastrointestinal: Constipation. absent: Abdominal Pain, Diarrhea, Nausea, Vomiting Genitourinary Female: absent: Dysuria Musculoskeletal: absent: Back Pain, Neck Pain Skin: absent: Rash Neurological: absent: Headache, Dizziness Physical Exam Vital Signs Reviewed: Yes Vital Signs Temp Pulse Resp BP Pulse Ox 12/30/18 16:03 98.7 F 89 18 159/84 H 100 Temperature: Afebrile Blood Pressure: Hypertensive Pulse: Regular Respiratory Rate: Normal Appearance: Positive for: Well-Appearing, Non-Toxic, Comfortable, Other (fatig ued) Pain Distress: None Mental Status: Positive for: Alert and Oriented X 3 - Systems Exam Head: Present: Atraumatic, Normocephalic Pupils: Present: PERRL Extroacular Muscles: Present: EOMI Conjunctiva: Present: Normal Mouth: Present: Moist Mucous Membranes Neck: Present: Normal Range of Motion Respiratory/Chest: Present: Clear to Auscultation, Good Air Exchange. No: Respiratory Distress, Accessory Muscle Use Cardiovascular: Present: Regular Rate and Rhythm, Normal S1, S2. 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 No: Cyanosis, Edema Lower Extremity: Present: Normal Inspection. No: Edema Neurological: Present: GCS=15, CN II-XII Intact, Speech Normal Skin: Present: Warm, Dry, Pale. No: Rashes Psychiatric: Present: Alert, Oriented x 3, Normal Insight, Normal Concentration Medical Decision Making ED Course and Treatment: 12/30/18 16:29 Impression: 43 year old female who presents to the emergency department complaining of fatigue and for evaluation of anemia. Plan: -- BBK -- CT abdomen and Pelvis -- Chest X-ray -- Labs -- EKG -- IV fluids -- Reassess and disposition Prior Visits: Notes and results from previous visits were reviewed. Progress Notes: 12/30/18 16:50 EKG shows NSR at 87bpm with normal intervals and no st changes 12/30/18 17:34 Patient hypoglycemic on labs. Reports she hasn't eaten today but took her insulin. Given juice 12/30/18 17:59 12/30/18 20:48 FINDINGS: LUNG BASES: The lung bases appear clear. No pleural effusions are seen. LIVER: Mild hepatomegaly. The liver measured approximately 17.4 cm in the midclavicular line. GALLBLADDER AND BILE DUCTS: The gallbladder appears within normal limits. No radioopaque gallstones are seen. No biliary ductal dilatation is evident. PANCREAS: There may have been subtotal or total pancreatectomy. Correlation with past known abdominal surgical history is needed. SPLEEN: The spleen is not identified. If there is no history of prior splenectomy, then this may represent congenital aplasia. ADRENAL GLANDS: Unremarkable. KIDNEYS, URETERS, AND BLADDER: The kidneys appear within normal limits. There is no hydronephrosis or hydroureter. No urinary calculi are seen. The urinary bladder appears normal in size and configuration. The bladder moreno are mildly thickened measuring up to 1.2 cm transversely. This could indicate some chronic cystitis. STOMACH AND BOWEL: Mucosal edematous thickening is seen within the lower esophagus at the esophagogastric junction thought consistent with some reflux esophagitis. There is also suspected gastritis and duodenitis. No evidence of bowel obstruction. Additionally, there is mucosal edematous wall thickening throughout the small and large intestine suspicious for enterocolitis. APPENDIX: Air filled without evidence of appendicitis. PERITONEUM: No free fluid. No free air. LYMPH NODES: No lymphadenopathy is evident. REPRODUCTIVE: In the right adnexal region there is identified an approximately 3.3 x 2.9 cm ovoid shaped hypodense zone with a density measurement of 13.9 HU. This may represent a right ovarian cyst. Consideration could be given to further characterization with TV pelvic ultrasound. VASCULATURE: No evidence of abdominal aortic aneurysm. Minor atherosclerotic vascular plaquing is present. An approximately 2.0 cm linear hyperdense focus is seen along the left hypogastric artery appearing to arise from the celiac artery. This demonstrates a density measurement of 393.3 HU and is of uncertain etiology. BONES: No aggressive appearing osseous lesion. No acute osseous pathology evident. IMPRESSION: 1. Gastroenteritis and colitis. 2. Evidence of reflux esophagitis. 3. 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 4. 3.3 x 2.9 cm hypodense zone in the right adnexal region thought likely consistent with an ovarian cyst. Consideration could be given to TV pelvic ultrasound. 5. Severe cystitis. 12/30/18 21:14 Patient reports that she does not feel better. Reports significant fatigue. Will observe for hematology eval - Lab Interpretations I have reviewed the lab results: Yes - RAD Interpretation Radiology Orders: 12/30/18 16:21 ABD & PELVIS IV CONTRAST ONLY [CT] Stat - EKG Interpretation Interpreted by ED Physician: Yes Type: 12 lead EKG - Medication Orders Current Medication Orders: Sodium Chloride (Sodium Chloride 0.9%) 1,000 mls @ 999 mls/hr IV .Q1H1M STA Stop: 12/30/18 17:22 - Scribe Statement The provider has reviewed the documentation as recorded by the Shree Gregory Provider Scribe Attestation: All medical record entries made by the Scribe were at my direction and personally dictated by me. I have reviewed the chart and agree that the record accurately reflects my personal performance of the history, physical exam, medical decision making, and the department course for this patient. I have also personally directed, reviewed, and agree with the discharge instructions and disposition. Disposition/Present on Arrival - Present on Arrival Any Indicators Present on Arrival: No History of DVT/PE: No History of Uncontrolled Diabetes: No Urinary Catheter: No History Surgical Site Infection Following: None - Disposition Have Diagnosis and Disposition been Completed?: Yes Diagnosis: Iron deficiency anemia, Fatigue Disposition: HOSPITALIZED Disposition Time: 20:49 Patient Plan: Observation Patient Problems: Current Active Problems Problem Status Onset Fatigue Acute Iron deficiency anemia Acute Condition: FAIR
[2018-12-30 16:51] LABS: BASO # 0.01 K/mm3 (0.0-2.0); BASO % 0.1 % (0.0-3.0); EOS % 0.1 % (1.5-5.0); LYMPH # 1.1 (1.2-3.4); LYMPH % 6.9 % (22.0-35.0); MEAN CELL VOLUME 86.5 fl (80.0-105.0); MEAN CORPUSCULAR HEMOGLOBIN 27.7 pg (25.0-35.0); MEAN PLATELET VOLUME 10.4 fl (7.0-11.0); MONO # 0.7 (0.1-0.6); MONO % 4.4 % (1.0-6.0); RBC 3.25 10^6/uL (3.5-6.1); WHITE BLOOD COUNT 15.1 10^3/uL (4.5-11.0)
[2018-12-30 17:01] LABS: INR 0.93; PARTIAL THROMBOPLASTIN TIME 35.5 Seconds (26.9-38.3); PROTHROMBIN TIME 10.3 SECONDS (9.4-12.5)
[2018-12-30 17:10] LABS: IRON 27 ug/dL (45-180)
[2018-12-30 17:19] LABS: % IRON SATURATION 9 % (20-55); TOTAL IRON BINDING CAPACITY 310 ug/dL (265-497)
[2018-12-30 17:24] LABS: TROPONIN I < 0.01 ng/mL
[2018-12-30 17:26] LABS: ALBUMIN 3.2 g/dL (3.0-4.8); ALT/SGPT 20 U/L (7-56); AST/SGOT 36 U/L (14-36); BLOOD UREA NITROGEN 23 mg/dL (7-21); CALCIUM 8.9 mg/dL (8.4-10.5); GFR NON-AFRICAN AMERICAN > 60
[2018-12-30] MEDS ORDERED: Iohexol 350 MG/100 ML VIAL ONE (18:57)
[2018-12-30 19:00] LABS: URINE APPEARANCE CLEAR (CLEAR); URINE BILIRUBIN NEGATIVE (NEGATIVE); URINE BLOOD TRACE-INTACT (NEGATIVE); URINE COLOR YELLOW (YELLOW); URINE GLUCOSE (UA) NEGATIVE (NEGATIVE); URINE LEUKOCYTE ESTERASE NEGATIVE Leu/uL (NEGATIVE); URINE PROTEIN 100 mg/dL (<30 mg/dL); URINE UROBILINOGEN 0.2 E.U./dL (<1 E.U./dL)
[2018-12-30 19:26] VITALS: BP 155/80; PULSE 80; O2SAT 99
[2018-12-30] MEDS ORDERED: Sodium Chloride 0.9% 500 ML IV STA (20:57)
--- NOTE | 2018-12-30 20:59 | CP.PCM.HP ---
Past Patient History - Infectious Disease Hx of Infectious Diseases: None - Past Social History Smoking Status: Never Smoked - CARDIAC Hx Hypertension: Yes - PULMONARY Hx Respiratory Disorders: No - NEUROLOGICAL Hx Neurological Disorder: No - HEENT Hx HEENT Problems: No - RENAL Hx Chronic Kidney Disease: No - ENDOCRINE/METABOLIC Hx Endocrine Disorders: Yes Hx Diabetes Mellitus Type 1: Yes (Pancreatic Tumor removed 2015) - HEMATOLOGICAL/ONCOLOGICAL Hx Blood Disorders: No - INTEGUMENTARY Hx Dermatological Problems: No - MUSCULOSKELETAL/RHEUMATOLOGICAL Hx Falls: No - GASTROINTESTINAL Hx Pancreatitis: Yes (Tumor removed 2015) - GENITOURINARY/GYNECOLOGICAL Hx Genitourinary Disorders: No - PSYCHIATRIC Hx Psychophysiologic Disorder: No Hx Substance Use: No - SURGICAL HISTORY Other/Comment: pancreatic surgery - ANESTHESIA Hx Anesthesia: Yes Meds Allergies/Adverse Reactions: Allergies Allergy/AdvReac Type Severity Reaction Status Date / Time No Known Allergies Allergy Verified 12/19/15 21:50 Results - Vital Signs Recent Vital Signs: Last Vital Signs Temp 98.7 F 12/30/18 16:03 Pulse 80 12/30/18 18:00 Resp 18 12/30/18 18:00 BP 155/80 H 12/30/18 18:00 Pulse Ox 99 12/30/18 18:00 - Labs Result Diagrams: 12/30/18 16:40 12/30/18 16:40 Labs: Laboratory Results - last 24 hr 12/30/18 12/30/18 12/30/18 16:30 16:40 16:40 WBC 15.1 H D RBC 3.25 L Hgb 9.0 L Hct 28.1 L MCV 86.5 MCH 27.7 MCHC 32.0 RDW 15.0 H Plt Count 291 MPV 10.4 Neut % (Auto) 88.5 H Lymph % (Auto) 6.9 L [place] % (Auto) 4.4 Eos % (Auto) 0.1 L Baso % (Auto) 0.1 Lymph # (Auto) 1.1 L [place] # (Auto) 0.7 H Eos # (Auto) 0.0 Baso # (Auto) 0.01 Absolute Neuts (auto) 13.39 H PT INR APTT Sodium 136 Potassium 4.5 Chloride 107 Carbon Dioxide 26 Anion Gap 8 L BUN 23 H Creatinine 0.8 Est GFR ( Amer) > 60 Est GFR (Non-Af Amer) > 60 POC Glucose (mg/dL) Random Glucose 40 L* D Calcium 8.9 Phosphorus 3.9 Magnesium 2.3 H Iron TIBC % Saturation Transferrin Total Bilirubin 0.2 AST 36 D ALT 20 Alkaline Phosphatase 62 Troponin I < 0.01 Total Protein 6.4 Albumin 3.2 Globulin 3.2 Albumin/Globulin Ratio 1.0 L Urine Color Urine Appearance Urine pH Ur Specific [place] Urine Protein Urine Glucose (UA) Urine Ketones Urine Blood Urine Nitrate Urine Bilirubin Urine Urobilinogen Ur Leukocyte Esterase Urine RBC Urine WBC Ur Epithelial Cells Blood Type A POSITIVE Blood Type Confirm Antibody Screen Negative BBK History Checked No verified bt 12/30/18 12/30/18 12/30/18 16:40 16:40 16:40 WBC RBC Hgb Hct MCV MCH MCHC RDW Plt Count MPV Neut % (Auto) Lymph % (Auto) [place] % (Auto) Eos % (Auto) Baso % (Auto) Lymph # (Auto) [place] # (Auto) Eos # (Auto) Baso # (Auto) Absolute Neuts (auto) PT 10.3 INR 0.93 APTT 35.5 Sodium Potassium Chloride Carbon Dioxide Anion Gap BUN Creatinine Est GFR ( Amer) Est GFR (Non-Af Amer) POC Glucose (mg/dL) Random Glucose Calcium Phosphorus Magnesium Iron 27 L TIBC 310 % Saturation 9 L Transferrin 253.11 Total Bilirubin AST ALT Alkaline Phosphatase Troponin I Total Protein Albumin Globulin Albumin/Globulin Ratio Urine Color Urine Appearance Urine pH Ur Specific [place] Urine Protein Urine Glucose (UA) Urine Ketones Urine Blood Urine Nitrate Urine Bilirubin Urine Urobilinogen Ur Leukocyte Esterase Urine RBC Urine WBC Ur Epithelial Cells Blood Type Blood Type Confirm Antibody Screen BBK History Checked 12/30/18 12/30/18 12/30/18 17:28 18:00 18:50 WBC RBC Hgb Hct MCV MCH MCHC RDW Plt Count MPV Neut % (Auto) Lymph % (Auto) [place] % (Auto) Eos % (Auto) Baso % (Auto) Lymph # (Auto) [place] # (Auto) Eos # (Auto) Baso # (Auto) Absolute Neuts (auto) PT INR APTT Sodium Potassium Chloride Carbon Dioxide Anion Gap BUN Creatinine Est GFR ( Amer) Est GFR (Non-Af Amer) POC Glucose (mg/dL) 29 L* Random Glucose Calcium Phosphorus Magnesium Iron TIBC % Saturation Transferrin Total Bilirubin AST ALT Alkaline Phosphatase Troponin I Total Protein Albumin Globulin Albumin/Globulin Ratio Urine Color Yellow Urine Appearance Clear Urine pH 6.0 Ur Specific [place] 1.025 Urine Protein 100 H Urine Glucose (UA) Negative Urine Ketones Negative Urine Blood Trace-intact H Urine Nitrate Negative Urine Bilirubin Negative Urine Urobilinogen 0.2 Ur Leukocyte Esterase Negative Urine RBC 1 - 3 H Urine WBC None Ur Epithelial Cells 1 - 3 Blood Type Blood Type Confirm A POSITIVE Antibody Screen BBK History Checked
--- NOTE | 2018-12-30 22:02 | CARD ---
APPROVED REPORT Date of service: 12/30/2018 EKG Measurement Heart [id number] <Conclusion> Normal sinus rhythm Normal ECG
--- NOTE | 2018-12-31 09:42 | RAD ---
Date of service: 12/30/2018 HISTORY: lethargy COMPARISON: 10/23/2018 FINDINGS: LUNGS: No active pulmonary disease. PLEURA: No significant pleural effusion identified, no pneumothorax apparent. CARDIOVASCULAR: No aortic atherosclerotic calcification present. Normal cardiac size. No pulmonary vascular congestion. OSSEOUS STRUCTURES: No significant abnormalities. VISUALIZED UPPER ABDOMEN: Normal. OTHER FINDINGS: None. IMPRESSION: No active disease.
--- NOTE | 2018-12-31 11:05 | CT ---
Date of service: 12/30/2018 PROCEDURE: CT Abdomen and Pelvis with contrast HISTORY: constipation, anemia COMPARISON: 07/22/2016 TECHNIQUE: Contrast dose: 100 cc of Omni 350 Radiation dose: Total exam DLP = 595.64 mGy-cm. This CT exam was performed using one or more of the following dose reduction techniques: Automated exposure control, adjustment of the mA and/or kV according to patient size, and/or use of iterative reconstruction technique. FINDINGS: LOWER THORAX: Unremarkable. LIVER: Unremarkable. No gross lesion or ductal dilatation. GALLBLADDER AND BILE DUCTS: Unremarkable. PANCREAS: Unremarkable. No gross lesion or ductal dilatation. SPLEEN: Splenectomy ADRENALS: Unremarkable. No mass. KIDNEYS AND URETERS: Unremarkable. No hydronephrosis. No solid mass. VASCULATURE: Unremarkable. No aortic aneurysm. No aortic atherosclerotic calcification or mural plaque present. BOWEL: Unremarkable. No obstruction. No gross mural thickening. Mild constipation APPENDIX: Normal appendix. PERITONEUM: Unremarkable. No free fluid. No free air. LYMPH NODES: Unremarkable. No enlarged lymph nodes. BLADDER: There is mild mural thickening of the bladder wall. REPRODUCTIVE: There is a 3 cm right adnexal cyst. BONES: No acute fracture. OTHER FINDINGS: None. IMPRESSION: Mural thickening in the bladder, possible cystitis. Right ovarian cyst measuring 3 cm. Mild constipation. Previous partial pancreatectomy and splenectomy
[2018-12-31 12:20] LABS: FERRITIN 13.6 ng/mL
== END 2018-12-30 21:50 | disposition left against medical advice (07) ==
LOC: ED 15:36 → ERH 20:54 → UNDOADMOB 20:54 → ED 21:50
DX: D50.9 Iron deficiency anemia, unspecified (principal); R53.83 Other fatigue; E11.9 Type 2 diabetes mellitus without complications; I10 Essential (primary) hypertension; I42.9 Cardiomyopathy, unspecified
CPT/HCPCS: 71045; 74177; 80053; 81001; 81025; 82728; 82948; 83540; 83735; 84100; 84466; 84484; 85025; 85610; 85730; 86850; 86900; 93005; 96360; 99283; J7030; Q9967